=== PATIENT | female | born 1950 | race Caucasian/White ===

== ENCOUNTER 2016-09-18 11:21 | Outpatient (CLI) | payer MEDICARE, OTHER ==
[2016-09-18 17:56] LABS: BASOPHILS % (AUTO) 0.7 %; EOSINOPHILS % (AUTO) 0.5 %; HCT - HEMATOCRIT 40.5 % (37.0-47.0); HGB - HEMOGLOBIN 13.6 g/dL (12.0-16.0); LYMPHOCYTES # (AUTO) 1.7 10^3/uL (1.5-3.5); LYMPHOCYTES % (AUTO) 30.5 %; MEAN CORPUSCULAR HEMOGLOBIN 30.5 pg (27.0-31.0); MEAN CORPUSCULAR HGB CONC 33.5 g/dL (32.0-36.0); MEAN CORPUSCULAR VOLUME 91.1 fL (81.0-99.0); MEAN PLATELET VOLUME 6.6 fL (7.9-10.8); MONOCYTES # (AUTO) 0.4 10^3/uL (0.0-1.0); MONOCYTES % (AUTO) 7.4 %; NEUTROPHILS # (AUTO) 3.4 10^3/uL (1.5-6.6); NEUTROPHILS % (AUTO) 60.9 %; NUCLEATED RED BLOOD CELLS AUTO 0.1 /100WBC; RED BLOOD COUNT 4.44 10^6/uL (4.20-5.40); RED CELL DISTRIBUTION WIDTH 13.3 % (12.0-15.0); UNCORRECTED WHITE BLOOD COUNT 5.6 x10^3/uL; WHITE BLOOD COUNT 5.6 x10^3/uL (4.8-10.8)
[2016-09-18 18:47] LABS: ALBUMIN/GLOBULIN RATIO 1.7 (1.0-2.2); BILIRUBIN,TOTAL 0.7 mg/dL (0.2-1.0); BUN - BLOOD UREA NITROGEN 12 mg/dL (6-20); CALCIUM 9.9 mg/dL (8.5-10.3); CARBON DIOXIDE - CO2 26 mmol/L (21-32); CHLORIDE 97 mmol/L (101-111); CHOL/HDL RATIO 2.9 (<4.4); CHOLESTEROL 389 mg/dL; CREATININE 0.6 mg/dL (0.4-1.0); GFR - MDRD 99 (>89); GLUCOSE 101 mg/dL (70-100); HDL CHOLESTEROL 134 mg/dL; LDL/HDL RATIO 1.8 (<4.4); POTASSIUM 3.8 mmol/L (3.5-5.0); SODIUM 132 mmol/L (135-145); TOTAL PROTEIN 7.1 g/dL (6.7-8.2); TRIGLYCERIDES 51 mg/dL; VLDL CHOLESTEROL 10 mg/dL
== END 2016-09-18 11:22 | disposition home or self-care (01) ==
LOC: LAB.F 11:21
PROVIDERS: ATTEND Internal Medicine
DX: F34.1 Dysthymic disorder (principal); M60.9 Myositis, unspecified; E78.5 Hyperlipidemia, unspecified; E78.00 Pure hypercholesterolemia, unspecified
CPT/HCPCS: 36415; 80053; 80061; 82550; 84443; 85025; 85651; 86140

== ENCOUNTER 2018-05-23 11:14 | Outpatient (CLI) | payer MEDICARE, OTHER ==
[2018-05-23 18:17] LABS: BASOPHILS % (AUTO) 0.4 %; EOSINOPHILS # (AUTO) 0.1 10^3/uL (0.0-0.7); EOSINOPHILS % (AUTO) 2.4 %; HGB - HEMOGLOBIN 13.1 g/dL (12.0-16.0); LYMPHOCYTES # (AUTO) 1.5 10^3/uL (1.5-3.5); LYMPHOCYTES % (AUTO) 29.5 %; MEAN CORPUSCULAR HEMOGLOBIN 30.6 pg (27.0-31.0); MEAN CORPUSCULAR HGB CONC 33.7 g/dL (32.0-36.0); MEAN CORPUSCULAR VOLUME 90.8 fL (81.0-99.0); MEAN PLATELET VOLUME 6.5 fL (7.9-10.8); MONOCYTES # (AUTO) 0.4 10^3/uL (0.0-1.0); MONOCYTES % (AUTO) 8.3 %; NEUTROPHILS # (AUTO) 3.1 10^3/uL (1.5-6.6); NEUTROPHILS % (AUTO) 59.4 %; PLT - PLATELET COUNT 366 10^3/uL (130-450); RED BLOOD COUNT 4.26 10^6/uL (4.20-5.40); RED CELL DISTRIBUTION WIDTH 14.1 % (12.0-15.0); WHITE BLOOD COUNT 5.2 x10^3/uL (4.8-10.8)
[2018-05-23 18:28] LABS: ALBUMIN 4.2 g/dL (3.2-5.5); ALBUMIN/GLOBULIN RATIO 1.9 (1.0-2.2); ALKALINE PHOSPHATASE 49 IU/L (42-121); ALT ALANINE AMINOTRANSFERASE 21 IU/L (10-60); AST ASPARTATE AMINOTRANSFERASE 28 IU/L (10-42); BILIRUBIN,TOTAL 0.5 mg/dL (0.2-1.0); BUN - BLOOD UREA NITROGEN 11 mg/dL (6-20); CALCIUM 9.6 mg/dL (8.5-10.3); CARBON DIOXIDE - CO2 26 mmol/L (21-32); CHLORIDE 98 mmol/L (101-111); CREATININE 0.5 mg/dL (0.4-1.0); GFR - MDRD 122 (>89); GLUCOSE 114 mg/dL (70-100); SODIUM 132 mmol/L (135-145); TOTAL PROTEIN 6.4 g/dL (6.7-8.2)
[2018-05-23 19:18] LABS: CRP - C-REACTIVE PROTEIN < 1.0 mg/dL (0-1.0)
== END 2018-05-23 11:15 | disposition home or self-care (01) ==
LOC: LAB.F 11:14
PROVIDERS: ATTEND Internal Medicine
DX: R53.83 Other fatigue (principal); M79.10 Myalgia, unspecified site
CPT/HCPCS: 36415; 80053; 84443; 85025; 85651; 86140

== ENCOUNTER 2018-10-20 06:54 | Day surgery (SDC) | payer MEDICARE, OTHER ==
[2018-10-20] MEDS ORDERED: MIDAZOLAM 2 MG/2 ML VIAL IVP ONE (06:55)
[2018-10-20] MEDS ORDERED: fentaNYL 100 MCG/2 ML VIAL IVP ONE (06:55)
[2018-10-20] MEDS ORDERED: VANCOMYCIN OPHTHALMI 8MG/0.8ML 8 MG/0.8 ML SYRINGE IO ONE ×2 (07:08→09:09)
[2018-10-20] MEDS ORDERED: TRIAMCIN/MOXIFLOX OPHTHALMIC 0.6 ML VIAL IO ONE ×2 (07:08→09:08)
[2018-10-20] MEDS ORDERED: BRIMONIDINE 0.2% OPHTH DROPS 5 ML ONE (07:08)
[2018-10-20] MEDS ORDERED: TIMOLOL 0.5% OPHTH DROPS ONE (07:08)
[2018-10-20] MEDS ORDERED: BSS/LIDOCAINE/EPINEPHRINE 1 ML SYRINGE ONE (07:08)
[2018-10-20] MEDS ORDERED: LACTATED RINGERS 1,000 ML IV ONE (07:15)
[2018-10-20] MEDS ORDERED: PHENYLEPHRINE 2.5% OPHTH 2 ML DROPS ONE (07:17)
[2018-10-20] MEDS ORDERED: CYCLOPENTOLATE 1% OPHTH DROPS 2 ML ONE (07:17)
[2018-10-20] MEDS ORDERED: PROPARACAINE 0.5% OPHTH DROPS 15 ML ONE (07:17)
[2018-10-20] MEDS ORDERED: KETOROLAC 0.45% OPHTH DROPS ONE (07:17)
[2018-10-20] MEDS ORDERED: KETOROLAC 0.45% OPHTH DROPS LEFTEYE ONE (07:25)
[2018-10-20] MEDS ORDERED: CYCLOPENTOLATE 1% OPHTH DROPS 2 ML LEFTEYE ONE (07:25)
[2018-10-20] MEDS ORDERED: PHENYLEPHRINE 2.5% OPHTH 2 ML DROPS LEFTEYE ONE (07:25)
[2018-10-20] MEDS ORDERED: PROPARACAINE 0.5% OPHTH DROPS 15 ML LEFTEYE ONE (07:25)
--- NOTE | 2018-10-20 08:12 | ANESTHESIA ---
Pre-Anesthesia VS, & Labs - Diagnosis left senile combined cataract, left - Procedure left laser assisted extraction of cataract with lens implant Vital Signs: Temp Pulse Resp BP Pulse Ox 37.3 C 75 18 172/82 H 100 10/20/18 07:35 10/20/18 07:35 10/20/18 07:35 10/20/18 07:35 10/20/18 07:35 Height 5 ft 2 in Weight (kg) 49.9 kg - NPO >8 hours - Is Patient ?: No Home Medications and Allergies Home Medications: Ambulatory Orders Gabapentin 300 mg PO QID 10/19/18 Gabapentin 300 mg PO QID 10/19/18 Allergies/Adverse Reactions: Allergies Allergy/AdvReac Type Severity Reaction Status Date / Time amoxicillin Allergy Rash Verified 10/19/18 14:52 Anes History & Medical History - Anesthetic History Anesthesia Complications: reports: Post-Operative Nausea/Vomiting - Medical History Cardiovascular: reports: None Pulmonary: reports: None Gastrointestinal: reports: Other Urinary: reports: None Neuro: reports: None Musculoskeletal: reports: Osteoarthritis Endocrine/Autoimmune: reports: None Skin: reports: None - Surgical History Gynecologic: Mastectomy Exam General: Alert Dental: WNL Mouth Opening: Greater than 4 Fingerbreadths Mallampati classification: II Thyromental Distance: greater than 6 cm Respiratory: Lungs clear Cardiovascular: Regular rate Plan Anesthesia Type: MAC Consent for Procedure(s) Verified and Reviewed: Yes Code Status: Attempt Resuscitation ASA classification: 2-Mild systemic disease Is this case an emergency?: No
[2018-10-20] MEDS ORDERED: EPINEPHrine 1 MG/ML AMP IVP ONE (09:03)
[2018-10-20] MEDS ORDERED: BSS/LIDOCAINE/EPINEPHRINE 1 ML SYRINGE IO ONE (09:03)
[2018-10-20] MEDS ORDERED: CHONDR SULF/HYALURONATE SYRINGE IO ONE (09:03)
[2018-10-20] MEDS ORDERED: TIMOLOL 0.5% OPHTH DROPS OPTH ONE (09:03)
[2018-10-20] MEDS ORDERED: BRIMONIDINE 0.2% OPHTH DROPS 5 ML OPTH ONE (09:03)
--- NOTE | 2018-10-20 10:22 | OPERATIVE REPORT ---
DATE OF SERVICE: 10/20/2018 Physician: Kaushik Abel MD PREOPERATIVE DIAGNOSIS: Visually significant cataract, left eye. This was her first cataract surgery. POSTOPERATIVE DIAGNOSIS: Visually significant cataract, left eye. This was her first cataract surgery. DESCRIPTION OF PROCEDURE: Phacoemulsification with posterior chamber intraocular lens implant, left eye with laser assist using a toric lens. SURGEON: Kaushik Abel MD ANESTHESIA: Monitored anesthesia care. COMPLICATIONS: None. OPERATIVE INDICATIONS: This is a 68-year-old woman with progressive vision loss in the left eye due to 2+ nuclear sclerotic and 3+ cortical cataract. Best corrected visual acuity was 20/40, with glare to 20/80 in the left eye. Indications for surgery are overall decrease in vision, difficulty seeing words on a computer screen, difficulty reading and difficulty seeing street signs. She was consented at length concerning risks and benefits of cataract surgery, after which she expressed a desire to proceed with surgery. OPERATIVE PROCEDURE: The patient was taken into OR #3 and placed under monitored anesthesia care. Surgical timeout was conducted confirming correct patient, correct procedure, and correct surgical site. She was placed on the LenSx laser and her eye was docked to the laser interface. The laser performed the capsulotomy, lens softening and phaco wounds and arcuate keratotomy incisions. She was then moved to the operating microscope, given topical anesthesia and then prepped and draped in the usual sterile fashion. The eye was entered at the 6 and 9 o'clock positions. Intracameral Shugarcaine was injected into the anterior chamber, followed by Viscoat. Capsulorrhexis flap created by the LenSx laser was removed from the anterior chamber. The nucleus was hydrodissected and phacoemulsified. The cortex was evacuated using automated infusion and aspiration. Provisc was injected in the capsular bag, and an 18.5 diopter toric intraocular lens inserted in the bag and rotated into the proper position. Approximately 0.8 mL of a mixture of triamcinolone, moxifloxacin and vancomycin was injected subconjunctivally in the superior quadrant for infection and inflammation prophylaxis. I and A, was used to evacuate the viscoelastic materials. The eye was inflated to physiologic pressure using balanced salt solution and found to be watertight. The lens was verified again to be in the proper position of axis 167. The patient was taken from the operating room in good condition and given postoperative instructions. TD: 10/20/2018 10:09 COLLEEN
[2018-10-20 10:47] VITALS: BP 145/74
== END 2018-10-20 06:55 | disposition home or self-care (01) ==
LOC: SDS 06:54
PROVIDERS: ATTEND Ophthalmology
PROC: 08RK3JZ Replacement of Left Lens with Synthetic Substitute, Percutaneous Approach (ICD-10-PCS; principal; 2018-10-20 08:30)
DX: H25.812 Combined forms of age-related cataract, left eye (principal)
CPT/HCPCS: 66984; A9270; J3490; J7120; V2632

== ENCOUNTER 2018-12-22 08:21 | Day surgery (SDC) | payer MEDICARE, OTHER ==
[~2018-12-22 08:21] MED LIST: BRIMONIDINE 0.2% OPHTH DROPS 5 ML ONE; BSS/LIDOCAINE/EPINEPHRINE 1 ML SYRINGE ONE; CYCLOPENTOLATE 1% OPHTH DROPS 2 ML ONE; KETOROLAC 0.45% OPHTH DROPS ONE; PHENYLEPHRINE 2.5% OPHTH 2 ML DROPS ONE; PROPARACAINE 0.5% OPHTH DROPS 15 ML ONE; TIMOLOL 0.5% OPHTH DROPS ONE; TRIAMCIN/MOXIFLOX OPHTHALMIC 0.6 ML VIAL IO ONE; VANCOMYCIN OPHTHALMI 8MG/0.8ML 8 MG/0.8 ML SYRINGE IO ONE
[2018-12-22] MEDS ORDERED: LIDOCAINE 2% 10 ML MDV SUBQ ONE (08:22)
[2018-12-22] MEDS ORDERED: PROPOFOL 200 MG/20 ML VIAL IVP ONE (08:22)
[2018-12-22] MEDS ORDERED: MIDAZOLAM 2 MG/2 ML VIAL IVP ONE (08:22)
[2018-12-22] MEDS ORDERED: LACTATED RINGERS 500 ML IV ONE (08:48)
--- NOTE | 2018-12-22 09:40 | ANESTHESIA ---
Pre-Anesthesia VS, & Labs - Diagnosis Right senile combined cataract - Procedure Right laser assisted phaco with IOL implant Vital Signs: Temp Pulse Resp BP Pulse Ox 37.3 C 88 16 178/91 H 100 12/22/18 08:36 12/22/18 08:36 12/22/18 08:36 12/22/18 08:36 12/22/18 08:36 Height 5 ft 2 in Weight (kg) 48 kg - NPO >8 hours (Sip water with pills) - Is Patient ?: No - Lab Results Lab results reviewed: No Home Medications and Allergies Home Medications: Ambulatory Orders DULoxetine [Cymbalta] 30 mg PO DAILY 12/21/18 Gabapentin 300 mg PO QID 10/19/18 DULoxetine [Cymbalta] 30 mg PO DAILY 12/21/18 Allergies/Adverse Reactions: Allergies Allergy/AdvReac Type Severity Reaction Status Date / Time amoxicillin Allergy Rash Verified 12/21/18 14:38 Anes History & Medical History - Anesthetic History Anesthesia Complications: reports: Other-see comment (Had to receive Narcan after last cataract surgery) Family history of Anesthesia Complications: Denies Family history of Malignant Hyperthermia: Denies - Medical History Cardiovascular: reports: High cholesterol Pulmonary: reports: None Gastrointestinal: reports: None, Other Urinary: reports: None Neuro: reports: None Musculoskeletal: reports: Osteoarthritis Endocrine/Autoimmune: reports: None Blood Disorders: reports: None Skin: reports: None Smoking Status: Former smoker Psychosocial: reports: No issues indicated - Surgical History Eyes Ears Nose Throat (EENT): Cataracts Gynecologic: Mastectomy Exam General: Alert, Oriented x3, Cooperative Dental: WNL, TMJ Mouth Opening: Greater than 4 Fingerbreadths Neck Mobility: Normal Mallampati classification: II Thyromental Distance: greater than 6 cm Respiratory: Lungs clear Cardiovascular: Regular rate Mental/Cognitive Status: Alert/Oriented X3 Cognitive Status: Within normal limits Plan Anesthesia Type: MAC Consent for Procedure(s) Verified and Reviewed: Yes Code Status: Attempt Resuscitation ASA classification: 2-Mild systemic disease Is this case an emergency?: No
[2018-12-22] MEDS ORDERED: BRIMONIDINE 0.2% OPHTH DROPS 5 ML OPTH ONE (10:26)
[2018-12-22] MEDS ORDERED: CHONDR SULF/HYALURONATE SYRINGE IO ONE (10:26)
[2018-12-22] MEDS ORDERED: EPINEPHrine 1 MG/ML AMP IVP ONE (10:26)
[2018-12-22] MEDS ORDERED: TRIAMCIN/MOXIFLOX OPHTHALMIC 0.6 ML VIAL IO ONE (10:27)
[2018-12-22] MEDS ORDERED: VANCOMYCIN OPHTHALMI 8MG/0.8ML 8 MG/0.8 ML SYRINGE IO ONE (10:27)
[2018-12-22] MEDS ORDERED: TIMOLOL 0.5% OPHTH DROPS OPTH ONE (10:27)
[2018-12-22] MEDS ORDERED: BSS/LIDOCAINE/EPINEPHRINE 1 ML SYRINGE IO ONE (10:27)
[2018-12-22 10:45] VITALS: BP 143/78
--- NOTE | 2018-12-22 11:28 | OPERATIVE REPORT ---
DATE OF SERVICE: 12/22/2018 Physician: Kaushik Abel MD PREOPERATIVE DIAGNOSIS: Visually significant cataract, right eye. Cataract surgery was performed on the left eye on 10/20/2018. POSTOPERATIVE DIAGNOSIS: Visually significant cataract, right eye. Cataract surgery was performed on the left eye on 10/20/2018. PROCEDURE: Phacoemulsification with posterior chamber intraocular lens implant, right eye. SURGEON: Kaushik Abel MD ANESTHESIA: Monitored anesthesia care. COMPLICATIONS: None. OPERATIVE INDICATIONS: This is a 68-year-old woman with progressive vision loss in the right eye due to 2+ nuclear sclerotic and 2-3+ cortical cataract. Best corrected visual acuity was 20/25, with glare to 20/70 in the right eye. Indications for surgery are overall decrease in vision, difficulty seeing words on a computer screen, difficulty reading, difficulty seeing words, closed caption or game scores on TV and difficulty seeing street signs. She was consented at length concerning risks and benefits of cataract surgery, after which she expressed a desire to proceed with surgery. OPERATIVE PROCEDURE: Patient was taken to OR #3 and placed under monitored anesthesia care. Surgical timeout was conducted confirming correct patient, correct procedure, and correct surgical site. She was placed under the LenSx laser and her eye docked to the laser interface. The laser performed the capsulotomy, lens softening, phaco wounds, and arcuate keratotomy incisions. She was then moved to the operating microscope, given topical anesthesia, and prepped and draped in the usual sterile manner. The eye was entered at the 12 and 9 o'clock positions. Intracameral Shugarcaine was injected into the anterior chamber, followed by Viscoat. The capsulorhexis flap created by the LenSx laser was removed from the anterior chamber. The nucleus was hydrodissected and phacoemulsified. The cortex was evacuated using automated infusion and aspiration (I&A). Provisc was injected in the capsular bag and a 20.0 diopter toric intraocular lens inserted in the bag and rotated into axis 007. Approximately 0.25 mL of a mixture of triamcinolone, moxifloxacin was injected transsclerally into the vitreous in the inferotemporal quadrant. An additional 0.55 mL of a mixture of triamcinolone, moxifloxacin and vancomycin was injected subconjunctivally in the superior quadrant for infection and inflammation prophylaxis. I&A, was used to evacuate the viscoelastic materials. The IOL was verified to be in the correct orientation. The eye was inflated to physiologic pressure using balanced salt solution and found to be watertight. Patient was taken from the operating room in good condition and given postoperative instructions. TD: 12/22/2018 10:49 MTDBg
== END 2018-12-22 08:22 | disposition home or self-care (01) ==
LOC: SDS 08:21
PROVIDERS: ATTEND Ophthalmology
PROC: 08RJ3JZ Replacement of Right Lens with Synthetic Substitute, Percutaneous Approach (ICD-10-PCS; principal; 2018-12-22 10:00)
DX: H25.811 Combined forms of age-related cataract, right eye (principal); E78.00 Pure hypercholesterolemia, unspecified; G62.9 Polyneuropathy, unspecified; M19.90 Unspecified osteoarthritis, unspecified site; Z87.891 Personal history of nicotine dependence; Z98.42 Cataract extraction status, left eye
CPT/HCPCS: 66984; A9270; J3490; V2632; V2787

== ENCOUNTER 2019-12-15 08:28 | Outpatient (CLI) | payer MEDICARE, OTHER ==
[2019-12-15 15:34] LABS: BASOPHILS % (AUTO) 0.3 %; EOSINOPHILS # (AUTO) 0.2 10^3/uL (0.0-0.7); EOSINOPHILS % (AUTO) 2.6 %; HGB - HEMOGLOBIN 12.9 g/dL (12.0-16.0); LYMPHOCYTES # (AUTO) 2.2 10^3/uL (1.5-3.5); LYMPHOCYTES % (AUTO) 31.9 %; MEAN CORPUSCULAR HEMOGLOBIN 29.9 pg (27.0-31.0); MEAN CORPUSCULAR HGB CONC 31.9 g/dL (32.0-36.0); MEAN CORPUSCULAR VOLUME 93.7 fL (81.0-99.0); MEAN PLATELET VOLUME 8.4 fL (7.9-10.8); MONOCYTES # (AUTO) 0.5 10^3/uL (0.0-1.0); NEUTROPHILS # (AUTO) 4.1 10^3/uL (1.5-6.6); NEUTROPHILS % (AUTO) 58.1 %; PLT - PLATELET COUNT 419 10^3/uL (130-450); RED BLOOD COUNT 4.31 10^6/uL (4.20-5.40); RED CELL DISTRIBUTION WIDTH 13.4 % (12.0-15.0)
[2019-12-15 15:47] LABS: ALBUMIN 4.4 g/dL (3.2-5.5); ALBUMIN/GLOBULIN RATIO 1.6 (1.0-2.2); BILIRUBIN,TOTAL 0.7 mg/dL (0.2-1.0); CALCIUM 9.8 mg/dL (8.5-10.3); CREATININE 0.6 mg/dL (0.4-1.0); TOTAL PROTEIN 7.2 g/dL (6.7-8.2)
[2019-12-15 19:41] LABS: RHEUMATOID FACTOR NEGATIVE (Negative)
== END 2019-12-15 08:29 | disposition home or self-care (01) ==
LOC: LAB.S 08:28
PROVIDERS: ATTEND Internal Medicine
DX: G62.9 Polyneuropathy, unspecified (principal)
CPT/HCPCS: 36415; 80053; 82607; 82746; 85025; 85651; 86038; 86430

== ENCOUNTER 2020-08-07 08:35 | Outpatient (CLI) | payer MEDICARE, OTHER ==
[2020-08-07 14:40] LABS: BASOPHILS % (AUTO) 0.4 %; EOSINOPHILS # (AUTO) 0.9 10^3/uL (0.0-0.7); EOSINOPHILS % (AUTO) 8.1 %; HCT - HEMATOCRIT 33.3 % (37.0-47.0); HGB - HEMOGLOBIN 10.6 g/dL (12.0-16.0); LYMPHOCYTES # (AUTO) 3.6 10^3/uL (1.5-3.5); LYMPHOCYTES % (AUTO) 32.3 %; MEAN CORPUSCULAR HEMOGLOBIN 29.3 pg (27.0-31.0); MEAN CORPUSCULAR HGB CONC 31.8 g/dL (32.0-36.0); MEAN PLATELET VOLUME 8.4 fL (7.9-10.8); NEUTROPHILS # (AUTO) 5.5 10^3/uL (1.5-6.6); NEUTROPHILS % (AUTO) 49.8 %; PLT - PLATELET COUNT 433 10^3/uL (130-450); RED BLOOD COUNT 3.62 10^6/uL (4.20-5.40); RED CELL DISTRIBUTION WIDTH 14.2 % (12.0-15.0); WHITE BLOOD COUNT 11.1 x10^3/uL (4.8-10.8)
[2020-08-07 15:15] LABS: ALBUMIN/GLOBULIN RATIO 1.6 (1.0-2.2); ALKALINE PHOSPHATASE 69 IU/L (42-121); ALT ALANINE AMINOTRANSFERASE 36 IU/L (10-60); AST ASPARTATE AMINOTRANSFERASE 31 IU/L (10-42); BILIRUBIN,TOTAL 0.7 mg/dL (0.2-1.0); BUN - BLOOD UREA NITROGEN 15 mg/dL (6-20); CARBON DIOXIDE - CO2 25 mmol/L (21-32); CHLORIDE 99 mmol/L (101-111); CHOL/HDL RATIO 5.5 (<4.4); CHOLESTEROL 270 mg/dL; CREATININE 0.7 mg/dL (0.4-1.0); GFR - MDRD 82 (>89); GLUCOSE 98 mg/dL (70-100); HDL CHOLESTEROL 49 mg/dL; LDL CHOLESTEROL,CALCULATED 205 mg/dL; LDL/HDL RATIO 4.2 (<4.4); POTASSIUM 3.2 mmol/L (3.5-5.0); SODIUM 134 mmol/L (135-145); TOTAL PROTEIN 6.5 g/dL (6.7-8.2); TRIGLYCERIDES 81 mg/dL; VLDL CHOLESTEROL 16 mg/dL
== END 2020-08-07 08:36 | disposition home or self-care (01) ==
LOC: LAB.S 08:35
PROVIDERS: ATTEND Internal Medicine
DX: E78.00 Pure hypercholesterolemia, unspecified (principal); R03.0 Elevated blood-pressure reading, without diagnosis of hypertension; I50.9 Heart failure, unspecified; G62.9 Polyneuropathy, unspecified; R22.42 Localized swelling, mass and lump, left lower limb
CPT/HCPCS: 36415; 80053; 80061; 83721; 83880; 85025; 85379

== ENCOUNTER 2020-08-14 12:26 | Outpatient (CLI) | payer MEDICARE, OTHER ==
[2020-08-21 17:22] LABS: COPPER 245 mcg/dL (70-175)
[2020-08-23 20:37] LABS: ENDOMYSIAL ANTIBODY SCR IGA NEGATIVE (NEGATIVE); GLIADIN (DEAMIDATED) AB IGA 2 U (<20); GLIADIN (DEAMIDATED) AB IGG 1 U (<20); IMMUNOGLOBULIN A 65 mg/dL (70-320); TISSUE TRANSGLUTAMINASE IGA <1 U/mL; TISSUE TRANSGLUTAMINASE IGG <1 U/mL
== END 2020-08-14 12:27 | disposition home or self-care (01) ==
LOC: LAB.S 12:26
PROVIDERS: ATTEND Psychiatry & Neurology Neurology
DX: M79.604 Pain in right leg (principal); M79.605 Pain in left leg; M79.671 Pain in right foot; M79.672 Pain in left foot; R29.2 Abnormal reflex; R20.0 Anesthesia of skin
CPT/HCPCS: 36415; 81599; 82525; 82728; 82784; 83516; 83735; 84155; 84165; 84630; 86255; 86334; 86780

== ENCOUNTER 2020-08-15 07:44 | Outpatient (CLI) | payer MEDICARE, OTHER | END 2020-08-15 07:45 | disposition home or self-care (01) | LOC: LAB.S 07:44 | PROVIDERS: ATTEND Psychiatry & Neurology Neurology | DX: R20.0 Anesthesia of skin (principal) | CPT/HCPCS: 84207 ==

== ENCOUNTER 2020-08-19 13:37 | Outpatient (CLI) | payer MEDICARE, OTHER ==
--- NOTE | 2020-08-19 17:49 | Ultrasound Report ---
PROCEDURE: Ankle Brachial Index INDICATIONS: HYPERREFLEXIA, NUMBNESS IN FEET, NECK PAIN TECHNIQUE: Ankle-brachial indices were obtained bilaterally and recorded. COMPARISONS: None. FINDINGS: Right ankle brachial index (RANDALL): 0.89 Left ankle brachial index (RANDALL): 1.0 Healing potential: Ankle pressures >55 mm Hg in non-diabetics and >80 mm Hg in diabetics are likely to achieve primary h ealing of ischemic foot ulcers. Toe pressures >30 mm Hg are likely to achieve primary healing of ischemic foot ulcers, toe or transme tatarsal amputations. IMPRESSION: A slightly decreased right ankle brachial index suggests probable peripheral vascular disease. Consid er ABIs with and without exercise versus peripheral arterial ultrasound if the patient has clinically significant claudication type symptoms. Reviewed by: Marcelino Wisdom MD on 08/19/2020 5:47 PM PDT Approved by: Marcelino Wisdom MD on 08/19/2020 5:47 PM PDT Station ID: [id number]
--- NOTE | 2020-08-19 18:41 | MRI Report ---
PROCEDURE: Cervical Spine W/O INDICATIONS: HYPERREFLEXIA, NUMBNESS IN FEET, NECK PAIN TECHNIQUE: Noncontrast sagittal T1 spin echo and T2 fast spin echo, sagittal STIR, foraminal oblique sagittal T2 fast spin echo, and axial gradient echo or T2 fast spin echo through the cervical spine. COMPARISON: None. FINDINGS: Image quality: Excellent. Alignment and Curvature: There is normal bony alignment. Bone Marrow: Marrow demonstrates normal overall signal. Spinal Cord: Visualized spinal cord has normal size and signal. No cerebellar tonsillar herniation. Paraspinous Soft Tissues: No paravertebral masses. Prevertebral soft tissues are normal in thicknes s. C2-C3: Normal in appearance. C3-C4: Disc height is preserved. Mild ligamentum flavum buckling and disc bulge results in mild jammie tral but no foraminal stenosis. C4-C5: Mild disc height loss and posterior disc bulge touches the ventral surface of the cord withou t cord indentation. There is moderate central stenosis with mild left foraminal stenosis. C5-C6: Moderate disc height loss and posterior disc osteophyte complex effaces the lateral recesses. Mild central stenosis present. Hypertrophic uncovertebral joints results in moderate left foraminal stenosis. No right foraminal stenosis. C6-C7: Posterior disc bulge and hypertrophic facet joints are present. No central or foraminal steno sis. C7-T1: Normal in appearance. IMPRESSION: 1. Multilevel degenerative disc disease and arthropathy results in varying degrees of central and for aminal stenosis including moderate central stenosis at C4-5 Reviewed by: Jabari Dye MD on 08/19/2020 5:40 PM [facility] Approved by: Jabari Dye MD on 08/19/2020 5:40 PM [facility] Station ID: [id number]
== END 2020-08-19 13:38 | disposition home or self-care (01) ==
LOC: DI 13:37
PROVIDERS: ATTEND Psychiatry & Neurology Neurology
DX: M50.31 Other cervical disc degeneration, high cervical region (principal); M48.02 Spinal stenosis, cervical region; M47.812 Spondylosis without myelopathy or radiculopathy, cervical region
CPT/HCPCS: 93922

== ENCOUNTER 2020-09-04 10:13 | Outpatient (CLI) | payer MEDICARE, OTHER | END 2020-09-04 10:14 | disposition home or self-care (01) | LOC: DI 10:13 | PROVIDERS: ATTEND Internal Medicine | DX: R00.0 Tachycardia, unspecified (principal); I51.7 Cardiomegaly; I34.0 Nonrheumatic mitral (valve) insufficiency; I31.3 Pericardial effusion (noninflammatory); R93.1 Abnormal findings on diagnostic imaging of heart and coronary circulation; I77.810 Thoracic aortic ectasia; I87.8 Other specified disorders of veins | CPT/HCPCS: 93306 ==

== ENCOUNTER 2020-10-31 14:31 | Outpatient (CLI) | payer MEDICARE, OTHER | END 2020-10-31 14:32 | disposition home or self-care (01) | LOC: RT 14:31 | PROVIDERS: ATTEND Internal Medicine Cardiovascular Disease | DX: I50.9 Heart failure, unspecified (principal) | CPT/HCPCS: 93005 ==

== ENCOUNTER 2020-11-27 08:39 | Outpatient (CLI) | payer MEDICARE, OTHER ==
[2020-11-27 15:04] LABS: BASOPHILS # (AUTO) 0.1 10^3/uL (0.0-0.1); BASOPHILS % (AUTO) 0.6 %; EOSINOPHILS # (AUTO) 0.2 10^3/uL (0.0-0.7); EOSINOPHILS % (AUTO) 1.9 %; HCT - HEMATOCRIT 39.7 % (37.0-47.0); HGB - HEMOGLOBIN 12.5 g/dL (12.0-16.0); LYMPHOCYTES % (AUTO) 33.9 %; MEAN CORPUSCULAR HEMOGLOBIN 28.5 pg (27.0-31.0); MEAN CORPUSCULAR HGB CONC 31.5 g/dL (32.0-36.0); MEAN CORPUSCULAR VOLUME 90.6 fL (81.0-99.0); MONOCYTES # (AUTO) 0.8 10^3/uL (0.0-1.0); MONOCYTES % (AUTO) 9.2 %; NEUTROPHILS # (AUTO) 4.8 10^3/uL (1.5-6.6); NEUTROPHILS % (AUTO) 54.2 %; PLT - PLATELET COUNT 605 10^3/uL (130-450); RED BLOOD COUNT 4.38 10^6/uL (4.20-5.40); RED CELL DISTRIBUTION WIDTH 18.4 % (12.0-15.0); WHITE BLOOD COUNT 8.9 x10^3/uL (4.8-10.8)
[2020-11-27 15:29] LABS: ALBUMIN 3.6 g/dL (3.2-5.5); ALBUMIN/GLOBULIN RATIO 1.3 (1.0-2.2); BILIRUBIN,TOTAL 0.9 mg/dL (0.2-1.0); CALCIUM 9.4 mg/dL (8.5-10.3); POTASSIUM 3.5 mmol/L (3.5-5.0); TOTAL PROTEIN 6.4 g/dL (6.7-8.2)
== END 2020-11-27 08:40 | disposition home or self-care (01) ==
LOC: LAB.S 08:39
PROVIDERS: ATTEND Internal Medicine
DX: I50.9 Heart failure, unspecified (principal); Z79.899 Other long term (current) drug therapy
CPT/HCPCS: 36415; 80053; 83880; 85025

== ENCOUNTER 2020-12-03 09:50 | Outpatient (CLI) | payer MEDICARE, OTHER ==
[2020-12-03 14:39] LABS: ALBUMIN 3.6 g/dL (3.2-5.5); ALBUMIN/GLOBULIN RATIO 1.3 (1.0-2.2); BILIRUBIN,TOTAL 0.7 mg/dL (0.2-1.0); CALCIUM 9.8 mg/dL (8.5-10.3); POTASSIUM 3.6 mmol/L (3.5-5.0); TOTAL PROTEIN 6.4 g/dL (6.7-8.2)
== END 2020-12-03 09:51 | disposition home or self-care (01) ==
LOC: LAB.S 09:50
PROVIDERS: ATTEND Internal Medicine
DX: I50.9 Heart failure, unspecified (principal)
CPT/HCPCS: 36415; 80053

== ENCOUNTER 2020-12-05 12:14 | Outpatient (CLI) | payer MEDICARE, OTHER ==
[2020-12-10 12:30] LABS: KAPPA/LAMBDA LC FREE RATIO 0.02 (0.26-1.65)
[2020-12-10 13:36] LABS: ALBUMIN 3.2 g/dL (3.8-4.8); ALPHA 2 GLOBULIN 0.9 g/dL (0.5-0.9); BETA 1 GLOBULIN 0.5 g/dL (0.4-0.6); BETA 2 GLOBULIN 0.3 g/dL (0.2-0.5); GAMMA GLOBULIN 0.5 g/dL (0.8-1.7)
== END 2020-12-05 12:15 | disposition home or self-care (01) ==
LOC: LAB.S 12:14
PROVIDERS: ATTEND Internal Medicine
DX: D64.9 Anemia, unspecified (principal)
CPT/HCPCS: 36415; 81599; 83883; 84155; 84165; 86334; 86335

== ENCOUNTER 2020-12-20 11:16 | Outpatient (CLI) | payer MEDICARE, OTHER ==
[2020-12-20 15:43] LABS: ALBUMIN 4.1 g/dL (3.2-5.5); ALBUMIN/GLOBULIN RATIO 1.4 (1.0-2.2); BILIRUBIN,TOTAL 0.7 mg/dL (0.2-1.0); CREATININE 1.2 mg/dL (0.4-1.0); POTASSIUM 4.1 mmol/L (3.5-5.0)
== END 2020-12-20 11:17 | disposition home or self-care (01) ==
LOC: LAB.S 11:16
PROVIDERS: ATTEND Internal Medicine
DX: I42.8 Other cardiomyopathies (principal); Z79.899 Other long term (current) drug therapy
CPT/HCPCS: 36415; 80053

== ENCOUNTER 2020-12-27 15:08 | Emergency (ER) | payer MEDICARE, OTHER ==
--- NOTE | 2020-12-27 16:56 | ED Physician Documentation ---
PD HPI Fall - Stated complaint Stated Complaint: GLF - Chief complaint Chief Complaint: Trauma Ch/Bk - History obtained from History obtained from: Patient - History of Present Illness Mechanism of injury: Tripped Fall distance: Standing position Where injury occurred: Street Timing - onset: Today Injury(ies) location: Chest, Back Quality of pain: Pain Associated symptoms: No: LOC, AMS, Amnesia, Seizures, Ear drainage, Nasal drainage, Neck pain, Weakness, Paresthesias, Dyspnea, Nausea / vomiting, Hematemesis, Abdominal distension Symptoms improve with: Rest Contributing factors: No: Anticoagulated Similar symptoms before: Has not had sx before Recently seen: Clinic - Additional information Additional information: 70-year-old female was going in to see the oncologist today about a diagnosis of multiple myeloma. She indicates that she tripped and fell backwards against a tree this afternoon. She reports pain to her back and chest wall. She states that she feels that she will be okay. She is not having difficulty breathing she does have some pain when she takes a deep breath in the left chest wall posteriorly. She is not on a blood thinner she did not strike her head she denies any neck pain. Review of Systems Constitutional: denies: Fever Respiratory: denies: Cough GI: denies: Vomiting Skin: denies: Rash Musculoskeletal: reports: Back pain. 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 HEENT: Cataracts - Present Medications Home Medications: Ambulatory Orders Medication Instructions Recorded Confirmed Gabapentin 300 mg PO 5XD 10/19/18 12/27/20 DULoxetine [Cymbalta] 30 mg PO DAILY 12/21/18 12/27/20 Amitriptyline [Elavil] 1 tab PO DAILY 12/27/20 12/27/20 FLUoxetine [PROzac] 1 tab PO DAILY 12/27/20 12/27/20 Furosemide [Lasix] 80 mg PO DAILY 12/27/20 12/27/20 Potassium Chloride [Micro-K] 20 mg PO DAILY 11/19/21 11/19/21 [id number] CD [Cardizem Cd] 1 tab PO DAILY 12/27/20 12/27/20 - Allergies Allergies/Adverse Reactions: Allergies Allergy/AdvReac Type Severity Reaction Status Date / Time amoxicillin Allergy Rash Verified 12/27/20 15:22 - Social History Smoking Status: Former smoker PD ED PE NORMAL - Vitals Vital signs reviewed: Yes (normal ) - General General: Alert and oriented X 3, No acute distress, Well developed/nourished, Other (pale appearing thin elderly female ) - HEENT HEENT: Atraumatic, PERRL - Neck Neck: Supple, no meningeal sign, No bony TTP - Cardiac Cardiac: RRR, No murmur - Respiratory Respiratory: No respiratory distress, Clear bilaterally, Other (mild chest wall tenderness posteriorly on the left side. 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, No motor deficit, No sensory def icit, Normal speech Eye Opening: Spontaneous Motor: Obeys Commands Verbal: Oriented GCS Score: 15 - Psych Psych: Normal mood, Normal affect Results - Vitals Vitals: Vital Signs - 24 hr 12/27/20 12/27/20 15:17 17:20 Temperature 36.8 C Heart Rate 90 86 Respiratory 16 18 Rate Blood Pressure 110/65 130/79 O2 Saturation 94 98 Oxygen O2 Source Room air - Rads (name of study) chest Radiology: Prelim report reviewed (Impression: No evidence of fracture or pneumothorax cardiomegaly without vascular congestion surgical clips and aortic atherosclerosis.), EMP read indepedently, See rad report PD MEDICAL DECISION MAKING - ED course Complexity details: reviewed results, re-evaluated patient, considered differential, d/w patient ED course: Frail 70-year-old female with a fall against a tree has a contusion to her chest wall. She does not appear to have any difficulty breathing. A chest x-ray is reassuring for no evidence of injury to the area. She feels that she will do well. Departure - Departure Disposition: 01 Home, Self Care Clinical Impression: Contusion of chest wall Qualifiers: Encounter type: initial encounter Laterality: left Qualified Code(s): S20.212A - Contusion of left front wall of thorax, initial encounter Condition: Stable Instructions: ED Contusion Chest Wall, ED Contusion Vs Minor Fx Rib Follow-Up: Hoem Hughes MD [Primary Care Provider] - Discharge Date/Time: 12/27/20 17:44
[2020-12-27 17:21] VITALS: BP 130/79
--- NOTE | 2020-12-27 17:27 | XRAY Report ---
PROCEDURE: Chest 2 View X-Ray INDICATIONS: left posterior chest wall contusion TECHNIQUE: 2 view(s) of the chest. COMPARISON: None. FINDINGS: Surgical changes and devices: Multiple surgical clips noted in the right chest and left axilla.. Lungs and pleura: No pleural effusions or pneumothorax. Lungs are clear. Mediastinum: Mediastinal contours are normal. Heart size is enlarged. No vascular congestion. Athe rosclerotic vascular calcification noted in the aortic arch. Bones and chest wall: No suspicious bony abnormalities. Soft tissues appear unremarkable. IMPRESSION: No evidence of fracture or pneumothorax Cardiomegaly without vascular congestion Surgical clips and aortic atherosclerosis Reviewed by: Jabari Dye MD on 12/27/2020 4:25 PM [place] Approved by: Jabari Dye MD on 12/27/2020 4:25 PM [facility] Station ID: [id number]
== END 2020-12-27 17:44 | disposition home or self-care (01) ==
LOC: ED 15:08
DX: S20.212A Contusion of left front wall of thorax, initial encounter (principal); W01.198A Fall on same level from slipping, tripping and stumbling with subsequent striking against other object, initial encounter; Y93.01 Activity, walking, marching and hiking; Y92.481 Parking lot as the place of occurrence of the external cause; Z87.891 Personal history of nicotine dependence
CPT/HCPCS: 99282; 99283

== ENCOUNTER 2020-12-28 10:25 | Outpatient (CLI) | payer MEDICARE, OTHER ==
[2020-12-28 15:22] LABS: CALCIUM 9.8 mg/dL (8.5-10.3); CREATININE 1.4 mg/dL (0.4-1.0)
== END 2020-12-28 10:26 | disposition home or self-care (01) ==
LOC: LAB.S 10:25
PROVIDERS: ATTEND Internal Medicine Cardiovascular Disease
DX: I50.9 Heart failure, unspecified (principal)
CPT/HCPCS: 36415; 80048

== ENCOUNTER 2021-02-13 12:00 | Outpatient (CLI) | payer MEDICARE, OTHER ==
--- NOTE | 2021-02-13 17:31 | CONSULTATION NOTE ---
Palliative Care Consultation - Referral Referring Provider: Dr. Home Hughes Time of Visit: Referral setting: Home Referral Reason: AL Amyloidosis/Goals of Care/Wt. Loss/CHF - Information Sources Records reviewed: Previous records reviewed History/Review of Systems obtained from: Patient, Family ( [place]) Exam limitations: Clinical condition (anxiety/overwhelmed with medical system) - History of Present Illness Brief History of Present Illness: This is a quiet reserved 70-year-old woman, who has had a significant decline in her health over the last several months. She originally developed some left ankle and leg pain, that was characteristic of sharp shooting pains, was started on gabapentin this was a couple of years ago and involved work up with neurology. She reports has now some bilateral sensations, but currently controlled but also has resulted in poor balance and numbness. She then developed some increasing lower extremity edema, which was originally resistant to furosemide, and was put on Bumex. She reports she had pitting edema up to her mid calf areas and increased shortness of breath. This is improved and on exam has trace pedal edema in her ankles only. She has not though, has her diuretics adjusted, was on Bumex 2 mg BID, recently ran out a few days ago. She has developed increased difficulty with swallowing, early satiety, and weight loss. She is currently 94 pounds down from baseline of 110 and was 104 a few weeks ago, and was worked up by cardiology. She was found on echogram in 08/28 to have moderate to severe LVH, severe diastolic dysfunction, global hypokinesis, ejection fraction of 45% and moderate to severe mitral regurgitation, moderate to severe tricuspid regurgitation and moderate pulmonary hypertension. There was concern the patient with her lambda light chain elevated, to rule out amyloidosis and myeloma. In follow-up with Dr. Turner in 10/29, reports hematology was to rule out myeloma versus amyloidosis, and if indicated then proceed with PYP scan to elevate for ATTR amyloid. Patient did see oncology, for diagnosis of abnormally elevated light chain concerning for myeloma/amyloidosis, CKD stage IIIb, and thrombocytosis. Unfortunately she felt quite overwhelmed, and distressed with this appointment, was given multiple appointments for testing in the setting of patient's already escalating anxiety and distress with interactions with medical system. In the context of testing that may involve travel in over to the other side, after her cardiac workout, she just decided to cancel all appointments. This was on 01/24. And has not really had any interaction other than a referral to palliative care since this time. She has continued to lose weight, increasing weakness, increased trouble with swallowing. She has developed tremors in her hands, worsening balance issues, and worsening fatigue. She is quite anxious, and both her and her are worried about her declining functional status as well as concern for transitioning to an end-of-life event. 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 Support System: Patient has been on [facility] since 1999 since they retired. She and her have been 48 years. She has done a variety of small jobs since she came here. Her sister and [id number] live on the [place]. Family History - Family History Family History: Mother: , Alzheimer's Disease ( of alz at 92), Father: , CAD (father of heart failure at 84), Sister: Alive and Well (two brother and one sister), Brother: Alive and Well Medications/Allergies - Medications Home Medications: Ambulatory Orders Medication Instructions Recorded Confirmed Gabapentin 300 mg PO 5XD 10/19/18 02/18/21 Amitriptyline [Elavil] 25 tab PO DAILY 12/27/20 02/18/21 FLUoxetine [PROzac] 10 tab PO DAILY 12/27/20 02/18/21 Potassium Chloride [Micro-K] 20 mg PO DAILY 12/27/20 01/24/21 Cholecalciferol [Vitamin D3] 1,000 intlu PO DAILY 01/24/21 02/18/21 Magnesium Oxide [Magnesium] 400 mg PO DAILY 01/24/21 02/18/21 Bumetanide 2 mg PO DAILY 02/18/21 02/18/21 Latanoprost 0.005% Ophth Drops 1 drops EACHEYE DAILY 02/18/21 02/18/21 [Xalatan Ophth Drops] diltiaZEM CD [Cardizem Cd] 120 mg PO DAILY 02/18/21 02/18/21 - Allergies Allergies/Adverse Reactions: Allergies Allergy/AdvReac Type Severity Reaction Status Date / Time amoxicillin Allergy Rash Verified 12/27/20 15:22 Review of Systems - Constitutional Constitutional: reports: Fatigue (worsening), Weakness, Poor appetite, Weight loss (94 pounds). denies: Fever - Eyes Eyes: reports: Vision loss - Ears, Nose & Throat Ears, Nose & Throat: reports: Dry mouth, Other (voice weak) - Cardiovascular Cardiovascular: reports: Lightheadedness, Exertional dyspnea, Decr. exercise tolerance. denies: Chest pain, Edema (currently controlled) - Respiratory Respiratory: reports: SOB with exertion. denies: Cough, Wheezing, Orthopnea, SOB at rest - Gastrointestinal Gastrointestinal: reports: Poor appetite, Early satiety. denies: Constipation, Nausea, Reflux/heartburn - Musculoskeletal Musculoskeletal: reports: Muscle pain, Muscle aches, Stiffness, Muscle weakness, Joint pain (knees and ankles). denies: Assistive devices (recommended a walker) - Integumentary Integumentary: reports: Dryness - Neurological Neurological: reports: General weakness, Numbness, Memory problems, Other (new tremors) - Psychiatric Psychiatric: reports: Depression, Anxiety - Endocrine Endocrine: reports: Intolerance to cold - Hematologic/Lymphatic Hematologic/Lymph: denies: Recurrent infections - All Other Systems All Other Systems: reports: Reviewed and negative Physical Exam - Vital Signs Temperature: 97.7 C Pulse Rate: 103 Respiratory Rate: 18 O2 Saturation: 98 Blood Pressure: 108/72 - Physical Exam General Appearance: positive: Alert, Anxious, Cachetic Eyes Bilateral: positive: No scleral icterus Neck: positive: Trachea midline Cardiovascular: positive: Regular rate & rhythm, Tachycardia Respiratory: positive: No respiratory distress, Breath sounds nml Abdomen: negative: Tenderness Skin: positive: Pallor, Dryness Extremities: positive: No pedal edema, Other (gait slow measured) Neurologic/Psychiatric: positive: Oriented x3, Weakness, Flat affect, Other (hand tremors; slight) Palliative Care - POLST Patient has POLST: No Pain: Pain unchanged, Location (left leg and thigh; currently controlled on gabapentin), Severity (3/10) Tiredness/Fatigue: Severe (7-10) Drowsiness/Sedation: Severe (7-10) Nausea: None Anorexia: Severe (7-10) Dyspnea: None Depression: Mild (1-3) Anxiety: Mild (1-3) Feelings of wellbeing/Perceived Quality of Life: Good, Acceptable, Worsening Sleep: Sleeps well Constipation: No Performance Status: Patient has had a decline in functional status, She is more sedentary, she is having difficulty with stairs. Needing to "pull her self up". She is no longer able to take baths, and showering is quite fatiguing. - Palliative Care Discussion: Has had multiple appointments and testing over the last few months, is feeling quite overwhelmed. She does understand there is most likely something serious going on, but was distressed and overwhelmed after her oncology appointment and did not want to go back. It is difficult to tease out whether it is anxiety or health literacy, but disliked her interaction with oncology. Unfortunately she then canceled all her appointments, and has had no further work up or instruction regarding her current health status. Her is understandably distressed, she continues to lose weight, is getting weaker. Patient does understand that she is getting towards an end-of-life event, though is not adamant in her decision to focus on comfort. We discussed two journeys as a decision point at this point, could follow-up regarding collecting information particularly regarding underlying etiology of what is going on, with some help in navigating system. She did not actually get far enough to even get a diagnosis nor what options may or may not be available, or we could transition focus to comfort, and refer her onto hospice with a focus on supporting her at home. After teasing out her anxiety regarding her current situation, decision is made to move forward, did offer her alternative oncologist to see if it is a better fit. This was acceptable to her, we also discussed could look at weighing the benefits and burdens of the multiple tests presented, to see what was going to give her information to be able to make a more informed decision. She is quite frail, and most likely would not tolerate any aggressive treatment regimen, that may be of benefit to explore underlying etiology why benefits and burdens of treatments at that time Results - Lab Results Lab results reviewed: Yes Impression and Recommendations - Palliative Care Impression: This is a 70-year-old woman who has had a significant change in health status, with recent development of CHF with unknown etiology in last few months, persistent weight loss, developed increase difficulty with swallowing, declining functional status, and abnormally elevated light chains concerning for myeloma/amyloidosis. Patient unfortunately related to her anxiety, did not follow up after her oncology consult for further care. Palliative care is meeting with patient and for first time to establish rapport, established goals of care, and help coordinate care. Recommendations/Counseling Done: 1. AL amyloidosis. Patient did not complete work-up, unfortunately there were many barriers regarding this, after much discussion in the context of goals of care, patient would like to pursue diagnosis, but weighing the tests and interventions in context of quality of life and impact on decision. We did discuss the need for an underlying etiology to better understand if she did have treatment options, which would include managing a chronic disease versus under standing the prognosis of something more serious. Barriers included relationship with the oncologist, feeling of overwhelmed particularly if needed further testing and [place], and understanding her current situation. Did reach out to oncology clinic, patient has been reassigned to Dr. Pulliam. We will facilitate getting further labs for visit prior to visit to be able to expedite diagnosis and information seeking. Will coordinate care with oncologist regarding patient's concerns. 2. CHF. Patient has been on Bumex 2 mg twice daily, does appear slightly dehydrated. Only trace edema in her ankles, complaints of weakness and dizziness. Blood pressure 108/72 with some lightheadedness. She has been off her diuretics for several days this was unable to obtain new prescription. Did call [facility] it is available, did reach out to Dr. Turner. Patient does not need to return to cardiology until oncology work-up is completed. Only reason for follow-up would be to adjust diuretics, most likely can have these decreased particularly with weight loss and ongoing issues. Patient this point time would not be a candidate for beta-blockers. We will continue to follow and refer her onto audiology when appropriate. E. Generalized weakness. Patient with multifactorial issues, instructed to get a walker, given [facility] [place]. Hopefully with medication adjustments will feel better, patient also most likely dehydrated. 4. Weight loss. This is multifactorial, patient with increased difficulty with swallowing, unclear if this is weakness, or something more serious related to her diagnosis. She is following a soft diet, discussed Chin down for choking, and instructed to increase her Ensure to twice a day. They are using soups, passes, encouraged more small frequent feedings. Will at some point transition back to oncology clinic will make a dietary/dietitian referral. 5. Anxiety. This is multifactorial, both her and her are distressed that her ongoing decline. We will continue to tease out what else is adding to her anxiety and needs for navigating healthcare system. 6. Advance care planning. Patient this point in time is not ready to transition to hospice, though counseling was provided regarding the continuum of care, introduction of palliative care vs hospice care, and patient's goals at this time are still ambivalent. We will go ahead and facilitate further follow- up and obtain labs, adjust medications, and coordinate with specialist to provide better information for patient to make informed choices. 75 minutes with greater than 50% of this time in counseling, keeping up goals of care, ordination of care with oncology and cardiology, follow-up with oncology clinic for labs and referral
== END 2021-02-13 12:01 | disposition home or self-care (01) ==
LOC: PC 12:00
PROVIDERS: ATTEND Nurse Practitioner Adult Health
DX: Z51.5 Encounter for palliative care (principal); E85.81 Light chain (AL) amyloidosis; I50.9 Heart failure, unspecified; N18.32 Chronic kidney disease, stage 3b; D75.839 Thrombocytosis, unspecified; F41.9 Anxiety disorder, unspecified; R60.0 Localized edema; I27.20 Pulmonary hypertension, unspecified; R63.4 Abnormal weight loss; R53.1 Weakness
CPT/HCPCS: 99345

== ENCOUNTER 2021-02-18 11:55 | Outpatient (CLI) | payer MEDICARE, OTHER ==
[2021-02-18 15:23] LABS: ALBUMIN 3.2 g/dL (3.2-5.5); BILIRUBIN,TOTAL 1.1 mg/dL (0.2-1.0); CREATININE 1.7 mg/dL (0.4-1.0); TOTAL PROTEIN 6.3 g/dL (6.7-8.2)
[2021-02-18 15:34] LABS: CALCIUM 10.7 mg/dL (8.5-10.3); POTASSIUM 3.9 mmol/L (3.5-5.0)
== END 2021-02-18 11:56 | disposition home or self-care (01) ==
LOC: LAB.S 11:55
PROVIDERS: ATTEND Nurse Practitioner Adult Health
DX: Z79.899 Other long term (current) drug therapy (principal)
CPT/HCPCS: 36415; 80053

== ENCOUNTER 2021-02-19 13:30 | Outpatient (CLI) | payer MEDICARE, OTHER ==
--- NOTE | 2021-02-20 18:03 | CONSULTATION NOTE ---
Palliative Care Follow Up - Referral Referring Provider: Dr. Hughes Time of Visit: SUNDAY 02/19 1330 30 minutes [place] [facility] [place] Reason: Hypercalcemia/CKD III/CHF/Goals of Care - Information Sources Records reviewed: Previous records reviewed History/Review of Systems obtained from: Patient Exam limitations: Clinical condition (patient with STM deficits; able to engage in exam and conversation) - History of Present Illness Update Brief HPI Update: This is a quiet reserved 70-year-old woman who has had a significant decline in her health over the last several months. Please see this note 02/13/21 for further extended HPI. Patient did receive 1 L of normal saline last week, with repeat labs this week. Her calcium is continued to increase at 10.7, she also presents with worsening kidney function of 1.7 and a GFR of 30 despite decreasing Bumex to 2 mg daily versus 2 twice daily. Patient continues to complain of persistent lethargy, intermittent tremors, difficulty walking this is attributed both to weakness and to her lower extremity numbness and pain. This is more prominent on her left side, particularly located in her left ankle and hip. She was asked to come in and get a liter of normal saline today, and was able to meet Dr. Pulliam briefly, who will initiate Zometa. She remains quite reticent regarding testing and further follow-up, asking if she is going to have to come every week. We discussed most likely until we understand better that underlying etiology of what is going on, as well as stabilize her labs. She is encouraged to "hang in there" with this so we can get her feeling better. At this point she is agreeable to this.Unfortunately because of COVID, her is not with her, but will be picking her up later. She does have a quiet demeanor, is starting to initiate conversation with DISCHARGE PLANNER, and ask some clarifying questions that is not present confused. Patient does have CHF of unknown etiology, they are working her up for amyloidosis. We need to rule out myeloma first, but of note patient also has a history of breast cancer. Her lungs are clear, she has trace pedal edema though I suspect this is more dependent in nature and related to her albumin.She reports her weight has remained stable and steady at 94, she is trying to eat more, but finds this challenging.This is related to some difficulty swallowing, but reports this has not worsened, as well as early satiety. Past Medical History: CHF, high cholesterol, tremors, breast cancer, chronic vision loss, anxiety, osteoarthritis, fatigue, mastectomy left 91, right 94 Social History - Living Situation Living arrangement: At home Living Situation: With spouse/s.o. Support System: Patient has been having on [facility] since 1999 when they retired. She and her has been over 48 years, she does have a son. [place] [id number] see on a regular basis. They have been quite isolated with [place] [id number], and with very little social support Medications/Allergies - Medications Home Medications: Ambulatory Orders Medication Instructions Recorded Confirmed Gabapentin 300 mg PO 5XD 10/19/18 02/20/21 Amitriptyline [Elavil] 25 tab PO DAILY 12/27/20 02/18/21 FLUoxetine [PROzac] 10 tab PO DAILY 12/27/20 02/20/21 Potassium Chloride [Micro-K] 20 mg PO DAILY 12/27/20 02/20/21 Cholecalciferol [Vitamin D3] 1,000 intlu PO DAILY 01/24/21 02/20/21 Magnesium Oxide [Magnesium] 400 mg PO DAILY 01/24/21 02/20/21 Bumetanide 1 mg PO DAILY 02/18/21 02/20/21 Latanoprost 0.005% Ophth Drops 1 drops EACHEYE DAILY 02/18/21 02/20/21 [Xalatan Ophth Drops] diltiaZEM CD [Cardizem Cd] 120 mg PO DAILY 02/18/21 02/20/21 - Allergies Allergies/Adverse Reactions: Allergies Allergy/AdvReac Type Severity Reaction Status Date / Time amoxicillin Allergy Rash Verified 12/27/20 15:22 Review of Systems - Constitutional Constitutional: reports: Fatigue (remains persistent), Weakness (very sedentary; has not gotten walker; did get four pronged cane), Poor appetite, Weight loss (94). denies: Fever - Eyes Eyes: reports: Vision loss - Ears, Nose & Throat Ears, Nose & Throat: reports: Hearing loss, Dry mouth. denies: Mouth lesions - Cardiovascular Cardiovascular: reports: Palpitations (feels heard beating fast at times), Lightheadedness, Exertional dyspnea, Decr. exercise tolerance - Respiratory Respiratory: reports: SOB with exertion. denies: Cough, SOB at rest - Gastrointestinal Gastrointestinal: reports: Poor appetite, Early satiety, Other (taste changes; getting one enures raquel a day). denies: Nausea, Bloating - Musculoskeletal Musculoskeletal: reports: Muscle aches, Stiffness, Limited range of motion, Muscle weakness, Assistive devices (reminded to get walker;) - Integumentary Integumentary: reports: Dryness - Neurological Neurological: reports: General weakness, Headache, Memory problems (mild), Abnormal gait, Other (voice changes) - Psychiatric Psychiatric: reports: Depression, Anxiety - Endocrine Endocrine: reports: Intolerance to cold - Hematologic/Lymphatic Hematologic/Lymph: denies: Recurrent infections - All Other Systems All Other Systems: reports: Reviewed and negative Physical Exam - Vital Signs Temperature: 36.2 C Pulse Rate: 100 Respiratory Rate: 20 Blood Pressure: 101/70 - Physical Exam General Appearance: positive: Alert, Anxious, Cachetic Eyes Bilateral: positive: Normal inspection ENT: positive: Other (examination of teeth; appear healthy denies problems but may benefit from getting to dentist) Neck: positive: Trachea midline, Stiff neck Cardiovascular: positive: Tachycardia Respiratory: positive: No respiratory distress (breathlessness noted with increased conversation), Diminished in bases. negative: Wheezes, Rales Abdomen: positive: Soft Skin: positive: Pallor, Dryness Extremities: positive: Pedal edema (trace pedal edema up to mid calf; no change) Neurologic/Psychiatric: positive: Oriented x3, Weakness, Depressed mood/affect, Flat affect Palliative Care - POLST Patient has POLST: No Pain: Pain unchanged, Location (left hip and leg) Tiredness/Fatigue: Severe (7-10) Drowsiness/Sedation: Moderate (4-6) Nausea: None Anorexia: Moderate (4-6), Weight loss Dyspnea: Moderate (4-6) Depression: Mild (1-3) Anxiety: Moderate (4-6) Feelings of wellbeing/Perceived Quality of Life: Fair, Acceptable, Worsening Sleep: Sleeps well Constipation: No Performance Status: Patient continues with poor activity tolerance,. They are trying to obtain a walker, did encourage her to increase her activity as she is comfortable. She does have difficulty going up and down her stairs. This is related to balance and strength. Did offer patient physical therapy, at this point in time she declines - Palliative Care Discussion: Patient continues to be somewhat perplexed by all of the happenings, we did review because of her abnormalities of her labs we are trying to help her feel better. She was open to starting the Zometa. Appreciated Dr. Pulliam introducing himself, her is going to need to be there for her appointment. She remains quite frail, and continued challenged by her decline in health. But is starting to be more curious and asking more questions. Results - Lab Results Lab results reviewed: Yes Lab and Imaging Results: Total protein 6.3, sodium 134, potassium 3.9, calcium 10.7, total bili 1.1, alk phos 298, creatinine 1.7, GFR 30 Impression and Recommendations - Palliative Care Impression: This is a 70-year-old woman who has had recent change in health status with CHF etiology weight loss, dysphagia, hypercalcemia, worsening kidney function, and concern for development of amyloidosis. Patient has high anxiety regarding interactions with medical system, and had canceled all appointments after 01/24. Palliative care met with patient and , would like to pursue further expl oring underlying etiology of her decline, but balance this with her goals. Palliative care continue to work with symptoms, and coordinate care with oncology team and cardiology. Recommendations/Counseling Done: 1. Hypercalcemia. Patient with repeat labs with calcium increasing to 10.7, despite liter of fluids last week. Patient received 3 g of Zometa via oncology today. She is still pending her oncology appointment, but will get supportive care with continued labs and careful watching. 2. CKD. Creatinine is worsening to 1.7, patient with no worsening lower extremity edema, lungs are clear. Will decrease her Bumex to 1 mg daily, patient to continue daily weights and monitoring of symptoms. 3. CHF. Patient at high risk for exacerbation, with current IV fluids, will adjust diuretics carefully but patient with poor intake and no recent exacerabations. 4. Weight loss. Remains steady at 94, but this is still a significant weight loss from her baseline 110. She is trying to increase her calories, swallowing remains problematic but has not worsened and may been improved. Will make referral to dietitian. 5. Anxiety. This is multifactorial, continue to build rapport with patient, and tease out barriers for follow-through on treatment plan. We will continue to help navigate healthcare system. Did provide [place] pass and disabled parking. 6. Advanced care planning. Will await further oncology appointment, to help inform prognosis and advanced care planning. Patient accepting of palliative care support, will continue to build rapport. 30 minutes with review of labs, coordination of care with oncology team, [id number] with patient for counseling and exam.
== END 2021-02-19 13:31 | disposition home or self-care (01) ==
LOC: PC 13:30
PROVIDERS: ATTEND Nurse Practitioner Adult Health
DX: Z51.5 Encounter for palliative care (principal); E83.52 Hypercalcemia; N18.30 Chronic kidney disease, stage 3 unspecified; I50.9 Heart failure, unspecified; R63.4 Abnormal weight loss; F41.9 Anxiety disorder, unspecified
CPT/HCPCS: 99214

== ENCOUNTER 2021-03-05 08:00 | Outpatient (CLI) | payer MEDICARE, OTHER | END 2021-03-05 23:59 | disposition home or self-care (01) | LOC: LAB 08:00 | PROVIDERS: ATTEND Internal Medicine | DX: R77.8 Other specified abnormalities of plasma proteins (principal); E83.52 Hypercalcemia; I50.9 Heart failure, unspecified; N18.32 Chronic kidney disease, stage 3b; D75.839 Thrombocytosis, unspecified; Z85.3 Personal history of malignant neoplasm of breast; Z90.13 Acquired absence of bilateral breasts and nipples | CPT/HCPCS: 81599; 82570; 83883; 84156; 84166; 86335 ==

== ENCOUNTER 2021-03-05 11:15 | Outpatient (CLI) | payer MEDICARE, OTHER ==
--- NOTE | 2021-03-05 13:58 | CONSULTATION NOTE ---
Palliative Care Follow Up - Referral Referring Provider: Dr. Hughes Time of Visit: 11:00 45 min Referral setting: [facility] Referral Reason: FTT/LE edema/Amyloidosis/Goals of Care - Information Sources Records reviewed: Previous records reviewed History/Review of Systems obtained from: Patient Exam limitations: Clinical condition (anxious/mild STM deficits) - History of Present Illness Update Brief HPI Update: This is a 70-year-old woman who has had a significant decline in health over the last several months. She is currently being worked up for abnormally elevated light chain concerning for myeloma/amyloidosis. She has had increased calcium, though this looks better after Zometa last week, continued concern for kidney function, has CHF of unknown etiology, presents with worsening lower extremity edema today. She also describes increased weakness, she has peripheral neuropathy and numbness particularly in her left leg, as well as increased trouble with swallowing. She does have considerable anxiety, thus had not finished her work-up and cancelled all tests after her last oncology meeting, she is meeting with Dr. Pulliam today, hoping this will ameliorate some of her anxiety if has more options though still is going to need a fairly extensive work-up. Unfortunately though had made arrangements for her to be here, he did not come in. She did meet with oncology, and her understanding is it is still important to have some of these tests, and at this point has agreed to bone marrow biopsy, labs, and a fat pad biopsy. The goal is to delay progression of her disease, identify a treatment regimen that is acceptable to patient, as well as manage her quality of life issues. Patient is quite cachectic, though her weight is up a little related to her lower extremity edema. She has diminished breath sounds in her bases, no crackles. Denies increased shortness of breath. She has been on 1 mg of Bumex, without any change in kidney function, will increase back to 2 mg. She is trying to eat more though this is difficulty as she does have a feeling of choking and things are sticking in her throat. She denies nausea, GERD, has had some mild constipation. She does report weakness, difficulty with walking has not gotten a walker yet. She remains quite anxious about pending tests though these were [place] and not at [place]. This will decrease the barrier for her participation. She would like to get stronger, and concerned about her swallowing issues, will go ahead and order home health physical therapy and speech therapy for swallowing. Past Medical History: CHF, hypercholesteremia, tremors, history of breast cancer, chronic vision loss, anxiety, osteoarthritis, fatigue, mastectomy left 91, right 94. Social History - Living Situation Living arrangement: At home Living Situation: With spouse/s.o. Support System: Patient has been on [facility] since 1999 when both of them retired. She and her have been over 48 years, they have 1 son. [place] Her sister and [id number] [place] whom they see on a regular basis. They have been quite isolated with [place] [id number], and very little social support Medications/Allergies - Medications Home Medications: Ambulatory Orders Medication Instructions Recorded Confirmed Gabapentin 300 mg PO 5XD 10/19/18 03/05/21 Amitriptyline [Elavil] 25 tab PO DAILY 12/27/20 03/05/21 FLUoxetine [PROzac] 10 tab PO DAILY 12/27/20 03/05/21 Potassium Chloride [Micro-K] 20 mg PO DAILY 12/27/20 03/05/21 Cholecalciferol [Vitamin D3] 1,000 intlu PO DAILY 01/24/21 03/05/21 Magnesium Oxide [Magnesium] 400 mg PO DAILY 01/24/21 03/05/21 Bumetanide 1 mg PO DAILY 02/18/21 03/05/21 Latanoprost 0.005% Ophth Drops 1 drops EACHEYE DAILY 02/18/21 03/05/21 [Xalatan Ophth Drops] diltiaZEM CD [Cardizem Cd] 120 mg PO DAILY 02/18/21 03/05/21 LORazepam [Ativan] 0.5 mg PO ONCE 1 Days #2 tablet 03/05/21 - Allergies Allergies/Adverse Reactions: Allergies Allergy/AdvReac Type Severity Reaction Status Date / Time amoxicillin Allergy Rash Verified 12/27/20 15:22 Review of Systems - Constitutional Constitutional: reports: Fatigue (remains persistent), Weakness (very sedentary; has not gotten walker; did get four pronged cane), Poor appetite, Weight loss (94). denies: Fever - Eyes Eyes: reports: Vision loss - Ears, Nose & Throat Ears, Nose & Throat: reports: Hearing loss, Dry mouth, Other (difficulty swallowing; feels like things get "stuck"). denies: Mouth lesions - Cardiovascular Cardiovascular: reports: Palpitations (feels heart beating fast at times), Edema (a little worse), Lightheadedness, Exertional dyspnea, Decr. exercise tolerance. denies: Chest pain - Respiratory Respiratory: reports: SOB with exertion. denies: Cough, SOB at rest - Gastrointestinal Gastrointestinal: reports: Poor appetite, Early satiety, Other (taste changes; getting one enures i an a day). denies: Nausea, Bloating - Musculoskeletal Musculoskeletal: reports: Muscle aches, Stiffness, Limited range of motion, Muscle weakness, Assistive devices (reminded to get walker;) - Integumentary Integumentary: reports: Dryness - Neurological Neurological: reports: General weakness, Headache, Memory problems (mild), Abnormal gait, Other (voice changes) - Psychiatric Psychiatric: reports: Depression, Anxiety - Endocrine Endocrine: reports: Intolerance to cold - Hematologic/Lymphatic Hematologic/Lymph: denies: Recurrent infections - All Other Systems All Other Systems: reports: Reviewed and negative Physical Exam - Vital Signs Pulse Rate: 66 Respiratory Rate: 18 O2 Saturation: 98 (ra @ rest) Blood Pressure: 105/69 - Physical Exam General Appearance: positive: Alert, Anxious, Cachetic Eyes Bilateral: positive: Normal inspection ENT: positive: No signs of dehydration Neck: positive: Trachea midline, Stiff neck Cardiovascular: positive: Regular rate & rhythm Respiratory: positive: No respiratory distress (breathlessness noted with increased conversation), Diminished in bases. negative: Wheezes, Rales Abdomen: positive: Soft Skin: positive: Pallor, Dryness Extremities: positive: Pedal edema (1-2+ up to mid calf; increased from last exam) Neurologic/Psychiatric: positive: Oriented x3, Weakness, Depressed mood/affect, Flat affect Palliative Care - POLST Patient has POLST: No POLST Status: Full Code Pain: Pain unchanged, Location (left leg/ankle uses gabapentin) Tiredness/Fatigue: Severe (7-10) Drowsiness/Sedation: Mild (1-3) Nausea: None Anorexia: Moderate (4-6), Weight loss Dyspnea: Moderate (4-6) Depression: Moderate (4-6) Anxiety: Severe (7-10) Feelings of wellbeing/Perceived Quality of Life: Fair, Worsening Sleep: Sleeps well Constipation: Yes, Unmanaged Performance Status: Patient is ambulatory, but would benefit from a walker particularly for balance. She will report she pulls herself up the stairs, does have increased weakness, decreased activity tolerance. Has become more sedentary though was quite active at baseline. - Palliative Care Discussion: Met with patient after her oncologist, unfortunately Lincoln did not come in. Patient's understanding is that she needs to continue with the tests, [place] She is still somewhat hesitant, does understand there is some seriousness in particular regarding understanding what is going on. We did review her anxiety pubic around bone marrow, reassured that they will make sure that this is comfortable for her. Encouraged her to bring Lincoln in for their next appointment. Will call him tomorrow and update after labs available. She is not clear that she really wants to go through with all this, we discussed that any point she can transition to supportive care only. But if she were to not get treatment, concern would be that this would lead to more rapid demise. And would recommend transitioning to hospice team. She verbalized understanding regarding this. Impression and Recommendations - Palliative Care Impression: This is a 70-year-old woman who has had significant decline in her health over the last several months, mostly attributed to her congestive heart failure of unknown etiology. She is getting worked up for concerns regarding myeloma versus amyloid diagnosis, secondary to elevated light chain. She is quite anxious regarding pending tests, continues with moderate to high symptom burden, and still somewhat ambivalent about goals. Palliative care meeting with patient for quality of life issues, defining goals of care, and coordination of care Recommendations/Counseling Done: 1. Constipation. Patient reports increased difficulty with bowels, given her swallowing difficulties recommended initiating MiraLAX half capful daily, written instructions provided. 2. CHF. Patient presents with worsening lower extremity edema, will increase Bumex back to 2 mg, finding balance between patient's kidney function, hypotension, and edema is problematic. Patient also presents most likely with dependent edema and poor nutrition. She will get some compression stockings, to help, encouraged to elevate her legs more frequently. She is seeing cardiology tomorrow, give status update. We will also get physical therapy involved can do some more exercises also to supplement this. 3. Generalized weakness. Patient has had decline in function this is multifactorial. Patient would like to get stronger. Recommended she obtain a walker, will go go ahead and order home physical therapy. This would be for safety, particularly navigating stairs, equipment needs, strengthening, and balance. 4. Dysphagia. Patient reports she does have some episodic choking or difficulty swallowing. Her voice is somewhat weaker. Unclear the etiology, will get an evaluation through speech therapy. Counseling provided regarding speech therapy address his swallowing problems as well as aspiration precautions and may be some suggestions for diet modifications to assist her and her . Patient has had a bout of 15 pound weight loss through this episode. Encouraged to continue to try and get a couple Ensure in and eat small frequent meals. 5. Amyloidosis. Patient is still getting work-up, remains somewhat hesitant regarding the burden of testing. Encouraged given it will all be up at the hospital, to follow through, to be able to see what and if her treatment options are. Patient remains again ambivalent regarding moving forward with treatment. Though she is not anxious to transition to end-of-life care either. We will continue to help patient with coordination of care and encourage her with appropriate support. 7. Advanced care planning. Counseling provided regarding patient's goals of care, can at any point transition to comfort or supportive care only. Patient has had decline both functionally, unclear extent of cognitive decline. She does present with ability to engage in conversation, does appear to have some level of understanding of information presented, may ask speech to do a [place] on her to get a baseline. 45 minutes Review of oncology notes, labs, [id number] with patient, counseling regarding anticipatory guidance, goals of care, encouragement to follow through on testing.
== END 2021-03-05 11:16 | disposition home or self-care (01) ==
LOC: PC 11:15
PROVIDERS: ATTEND Nurse Practitioner Adult Health
DX: Z51.5 Encounter for palliative care (principal); R60.0 Localized edema; I50.9 Heart failure, unspecified; R77.8 Other specified abnormalities of plasma proteins; R53.83 Other fatigue; M62.81 Muscle weakness (generalized); R63.0 Anorexia; R63.4 Abnormal weight loss; R13.10 Dysphagia, unspecified; K59.00 Constipation, unspecified; G62.9 Polyneuropathy, unspecified; R41.3 Other amnesia; F41.9 Anxiety disorder, unspecified; Z79.899 Other long term (current) drug therapy
CPT/HCPCS: 99215

== ENCOUNTER 2021-03-07 08:41 | Outpatient (CLI) | payer MEDICARE, OTHER ==
[~2021-03-07 08:41] MED LIST changes: -BRIMONIDINE 0.2% OPHTH DROPS 5 ML ONE; -BSS/LIDOCAINE/EPINEPHRINE 1 ML SYRINGE ONE; -CYCLOPENTOLATE 1% OPHTH DROPS 2 ML ONE; -KETOROLAC 0.45% OPHTH DROPS ONE; -PHENYLEPHRINE 2.5% OPHTH 2 ML DROPS ONE; -PROPARACAINE 0.5% OPHTH DROPS 15 ML ONE; -TIMOLOL 0.5% OPHTH DROPS ONE; -TRIAMCIN/MOXIFLOX OPHTHALMIC 0.6 ML VIAL IO ONE; -VANCOMYCIN OPHTHALMI 8MG/0.8ML 8 MG/0.8 ML SYRINGE IO ONE; +lidocaine 1% 20 ML MDV ONE
[2021-03-07] MEDS: LACTATED RINGERS 1,000 ML IV ONE ×2 (09:11→10:38)
[2021-03-07 09:41] LABS: INR 1.1 (0.8-1.2); PT - PROTHROMBIN TIME 12.2 secs (9.9-12.6)
[2021-03-07 09:48] LABS: PARTIAL THROMBOPLASTIN TIME 28.9 secs (24.9-33.3)
[2021-03-07] MEDS ORDERED: fentaNYL 100 MCG/2 ML VIAL ONE (09:59)
[2021-03-07] MEDS ORDERED: MIDAZOLAM 2 MG/2 ML VIAL ONE (09:59)
[2021-03-07 11:30] VITALS: BP 112/65
--- NOTE | 2021-03-07 12:30 | CT Report ---
PROCEDURE: BONE MARROW BX W/ASPIRATION INDICATIONS: LIGHT CHAIN DISEASE, THROMBOCYTOSIS TECHNIQUE: The indications, alternatives, benefits, risks, and possible complications of the procedure were comm unicated to the patient. Informed written consent from the patient was obtained and placed in the art. Continuous EKG and hemodynamic monitoring was started by trained personnel. For radiation dose reduction, the following was used: automated exposure control, adjustment of mA and/or kV according to patient size. The patient was brought to the CT suite and metal annealer spiral CT imaging was performed with localization g rid. The appropriate site for percutaneous access to the biopsy target was marked, was prepped and d raped sterilely, and was infused with local anaesthesia. Under CT guidance, a core biopsy trocar and needle set was advanced to the biopsy target, and specimen(s) were obtained. The trocar and needle were then removed, and the patient was sent for post-procedure monitoring. COMPARISON: None. FINDINGS: Biopsy site: Left posteriorly iliac crest Needle: 11 gauge biopsy needle with introducer trocar. Number of passes: 1 with aspirate Medications: 1% lidocaine for local anaesthesia. IV Fentanyl and Versed for conscious sedation (see nursing record). Complications: None. IMPRESSION: Successful CT-guided left posterior iliac crest bone marrow aspirate and bone marrow bio psy. Reviewed by: Rakesh Magallanes MD on 03/07/2021 12:28 PM PST Approved by: Rakesh Magallanes MD on 03/07/2021 12:28 PM PST Station ID: [id number]
== END 2021-03-07 08:42 | disposition home or self-care (01) ==
LOC: DI 08:41
PROVIDERS: ATTEND Internal Medicine
DX: R77.8 Other specified abnormalities of plasma proteins (principal); D75.839 Thrombocytosis, unspecified; I50.9 Heart failure, unspecified
CPT/HCPCS: 36415; 38222; 77012; 85610; 85730; J7120; 85014; 85018

== ENCOUNTER 2021-03-26 10:30 | Outpatient (CLI) | payer MEDICARE, OTHER ==
--- NOTE | 2021-03-26 13:08 | CONSULTATION NOTE ---
Palliative Care Follow Up - Referral Referring Provider: Dr. Hughes Time of Visit: [id number] Referral setting: Home Referral Reason: [place] Amyloidosis/Muscle Weakness/Wt. Loss/ACP - Information Sources Records reviewed: Previous records reviewed History/Review of Systems obtained from: Patient Exam limitations: Clinical condition (mild STM) - History of Present Illness Update Brief HPI Update: This is a quiet 70-year-old woman who has had continued decline with her health over the last several months, did have her bone marrow biopsy that did show amyloidosis. She is awaiting final follow-up with her oncologist, but saw her PCP yesterday who delivered the news. She does understand the seriousness of this illness, and is quite reflective on her end-of-life today. Unfortunately her is gone to an eye appointment, but it does leave us some time to talk about her feelings regarding this. She continues with lower extremity edema, diminished breath sounds in the base, but no increasing shortness of breath. She was seen by Dr. Turner, who increased her Bumex to 1 mg twice daily, and requested she take 60 mEq of potassium, but has only been taking 20 secondary to discomfort with tabs. Her BUN remains slightly elevated at 27 and creatinine 1.5 on 03/19 her labs are closely being monitored. She continues with poor nutritional status, increased cachexia, total protein 5.5 and albumin 2.7.She does have ongoing persistent peripheral neuropathy currently controlled with her gabapentin, she is com plaining of dry mouth on examination does have some oral candidiasis. She has been given some direction and addition of a new medication mentalis on . to add as "as needed" patient does not recall specific directions regarding this. She continues with some hypotension 102/64, she is having trouble getting adequate calories related to mild swallowing difficulties, taste changes, and early satiety. She has started with physical home therapy, she has not seen the speech therapist yet for swallowing. Her goals are to be able to work in the garden, she is willing to consider treatment options in the context of quality of life, she has had chemotherapy in the past because of her breast cancer. She does recognize this is different, but is willing to consider treatment in the context of quality and quantity of life. Past Medical History: CHF, hypercholesteremia, tremors, history of breast cancer, chronic vision loss, anxiety, osteoarthritis, fatigue, mastectomy on left 91, on right 89. Social History - Living Situation Living arrangement: At home Living Situation: With spouse/s.o. Support System: Patient has been on [facility] since 1999, with both she and her retired. They have been over 48 years, and have 1 son who lives not too far away. [place] has done a [place] Her sister and [id number] [place] whom they see on a regular basis. They have been quite isolated with COVID-19 and present with very little social support Medications/Allergies - Medications Home Medications: Ambulatory Orders Medication Instructions Recorded Confirmed Gabapentin 300 mg PO 5XD 10/19/18 03/27/21 Amitriptyline [Elavil] 25 tab PO DAILY 12/27/20 03/27/21 FLUoxetine [PROzac] 10 tab PO DAILY 12/27/20 03/27/21 Potassium Chloride [Micro-K] 60 mg PO DAILY MDD has been takin 12/27/20 03/27/21 20-40 Cholecalciferol [Vitamin D3] 1,000 intlu PO DAILY 01/24/21 03/27/21 Magnesium Oxide [Magnesium] 400 mg PO DAILY 01/24/21 03/27/21 Bumetanide 1 mg PO BID 02/18/21 03/27/21 Latanoprost 0.005% Ophth Drops 1 drops EACHEYE DAILY 02/18/21 03/27/21 [Xalatan Ophth Drops] diltiaZEM CD [Cardizem Cd] 120 mg PO DAILY 02/18/21 03/27/21 Nystatin [Mycostatin] 5 ml PO TID MDD 7 days 03/27/21 03/27/21 metOLazone [Zaroxolyn] 2.5 mg PO .3X WEEK PRN 03/27/21 03/27/21 - Allergies Allergies/Adverse Reactions: Allergies Allergy/AdvReac Type Severity Reaction Status Date / Time amoxicillin Allergy Rash Verified 12/27/20 15:22 Review of Systems - Constitutional Constitutional: reports: Fatigue (remains persistent), Weakness (very sedentary; has not gotten walker; did get four pronged cane), Poor appetite, Weight loss (94). denies: Fever - Eyes Eyes: reports: Vision loss - Ears, Nose & Throat Ears, Nose & Throat: reports: Hearing loss, Dry mouth - Cardiovascular Cardiovascular: reports: Palpitations, Lightheadedness, Exertional dyspnea, Decr. exercise tolerance - Respiratory Respiratory: reports: SOB with exertion. denies: Cough, SOB at rest - Gastrointestinal Gastrointestinal: reports: Poor appetite, Early satiety, Other (taste changes; getting one enures i an a day). denies: Nausea, Bloating - Musculoskeletal Musculoskeletal: reports: Muscle aches, Stiffness, Limited range of motion, Muscle weakness, Assistive devices (reminded to get walker;) - Integumentary Integumentary: reports: Dryness - Neurological Neurological: reports: General weakness, Headache, Memory problems (mild), Abnormal gait, Other (voice changes) - Psychiatric Psychiatric: reports: Depression, Anxiety - Endocrine Endocrine: reports: Intolerance to cold - All Other Systems All Other Systems: reports: Reviewed and negative Physical Exam - Vital Signs Temperature: 97.3 C Pulse Rate: 93 Respiratory Rate: 18 O2 Saturation: 92 Blood Pressure: 102/64 - Physical Exam General Appearance: positive: No acute distress, Alert, Cachetic (upper extremity wasting) Eyes Bilateral: positive: Normal inspection ENT: positive: Oral lesions (white patches tongue/candiasis) Neck: positive: Trachea midline Cardiovascular: positive: Regular rate & rhythm, Tachycardia Respiratory: positive: No respiratory distress, Diminished in bases. negative: Wheezes, Rales, Rhonchi Abdomen: positive: Non-tender, Soft Skin: positive: Pallor, Dryness Extremities: positive: Pedal edema (LE pitting edema up to mid thigh; reports no improvement or worsening with diuretic increase; has low albumin) Neurologic/Psychiatric: positive: Oriented x3, Mood/affect nml, Flat affect Palliative Care - POLST Patient has POLST: No POLST Status: Full Code Pain: Pain unchanged, Location (bilateral leg pain; managed with gabapentin) Tiredness/Fatigue: Severe (7-10) Drowsiness/Sedation: Mild (1-3) Nausea: None Anorexia: Moderate (4-6), Weight loss Dyspnea: Mild (1-3) Depression: Mild (1-3) Anxiety: Moderate (4-6) Feelings of wellbeing/Perceived Quality of Life: Fair, Worsening Sleep: Sleeps well Constipation: Yes Performance Status: Patient has somewhat of an ataxic gait, shuffled. She has gotten a walker but is not using it in the house. She is due to see physical therapy. Her goal is to be able work in the garden, she would like to get a little stronger and is worried about fall recovery. Request that she talk to her physical therapist about this.She is managing to pull herself up the stairs, though this does not sound safe. She is bathing independently. - Palliative Care Discussion: Unfortunately her is not present, had wanted to talk to them about advance care planning. She reports she is seeing her primary care yesterday, had delivered the bad news and the seriousness of her illness. We did discuss most likely has some treatment options, she can weigh those benefits and burdens of each treatment she is thinking she would at least give it a try. They have been making arrangements, reports they have both made arrangements to the [employer]. They do have 1 son, she is not sure how he is doing with this, though reports her is very upset. She herself is fairly pragmatic, but is grateful to have gone through the work-up to understand more about what is happening to her. Results - Lab Results Lab results reviewed: Yes Lab and Imaging Results: Post recent labs have her potassium at 3.2, BUN 27, creatinine 1.5, AST 109 ALT 76 alk phos 434, total protein 5.5, albumin 2.7 Impression and Recommendations - Palliative Care Impression: This is a 70-year-old woman who has had significant decline in her health over the last several months, she has gone through the work-up and is pending further treatment plan with oncology related to amyloidosis. She continues with moderate to high symptom burden, remains somewhat ambivalent about her goals but is thinking she would do treatment. Palliative care meeting with patient for quality of life issues, continued defining goals of care, and coordination of care. Recommendations/Counseling Done: 1. CHF. Patient presents with lower extremity edema, this is most likely multifactorial including her low proteins and amyloidosis. Patient's blood pressure is slightly low. She is currently on Bumex 1 mg twice daily D, Dr. Turner did add some metolazone as needed, patient needing more definition regarding this. Did write out instructions for metolazone half hour before Bumex 3 times a week for weight gain of greater than 2 pounds and 24 hours or 5 pounds in 1 week. Patient's lungs are clear, and no further cardiac symptoms. 2. Constipation. Patient continues with difficulty with bowels, reviewed bowel program. 3. Generalized weakness. Patient has had decline in function, this is multifactorial. She does have a walker now, physical therapy has started, her goals are for working in the garden and to be able to ambulate better. 4. Dysphagia. Patient does have episodic choking and difficulty swallowing. Unclear etiology, she will be seeing speech therapy. She is trying to modify diet. She continues with weight loss. 5. Amyloidosis. Patient relieved to have gotten through bone marrow biopsy, reports it was not that bad. She her PCP though did deliver the news yesterday, we did discuss most likely will be offered treatment options. She can continue to play those in the context of quality of life. She has done chemotherapy in the past with breast cancer, and remembers it not being so bad. Reminded her to make sure her comes with her in for appointment. We will continue to weigh benefits and burdens with her, she does understand the seriousness of her illness, but currently feels her quality of life is acceptable. 6. Hypokalemia. Patient has been instructed to increase her potassium up to 60 mg, she was having trouble with both swallowing and felt like it gave her palpi tations. Instructed her to take at least 40 mg, discussed strategies how to spread it out. Patient verbalized understanding. 7. Oral candidiasis patient complaining of dry mouth and discomfort, on examination does have oral candidiasis. Did go ahead and order nystatin swish and swallow 3 times a day for 1 week. 8. Advanced care planning unfortunately her is not present, did discuss patient's goals in the context of quality of life, she does not feel like her would be able to manage her at home at end-of-life, so does have some expressed concerns. They have done some preplanning, did go ahead and get plans. [place] community support otherwise. 45 minutes with greater than 50% of this done in counseling regarding goals of care, symptom management, anticipatory guidance, and coordination of care with oncology team
== END 2021-03-26 10:31 | disposition home or self-care (01) ==
LOC: PC 10:30
PROVIDERS: ATTEND Nurse Practitioner Adult Health
DX: Z51.5 Encounter for palliative care (principal); E85.81 Light chain (AL) amyloidosis; I50.9 Heart failure, unspecified; K59.00 Constipation, unspecified; G62.9 Polyneuropathy, unspecified; R53.1 Weakness; R13.10 Dysphagia, unspecified; R63.0 Anorexia; R63.4 Abnormal weight loss; E87.6 Hypokalemia; B37.0 Candidal stomatitis; R53.83 Other fatigue; Z79.899 Other long term (current) drug therapy
CPT/HCPCS: 99349

== ENCOUNTER 2021-04-09 12:46 | Outpatient (CLI) | payer MEDICARE, OTHER | END 2021-04-09 12:47 | disposition critical access hospital (66) | LOC: EMS 12:46 | DX: S01.81XA Laceration without foreign body of other part of head, initial encounter (principal); R53.1 Weakness; R42 Dizziness and giddiness; W18.39XA Other fall on same level, initial encounter; Y93.01 Activity, walking, marching and hiking; Y92.008 Other place in unspecified non-institutional (private) residence as the place of occurrence of the external cause | CPT/HCPCS: A0425; A0427 ==

== ENCOUNTER 2021-04-09 13:27 | Emergency (ER) | payer MEDICARE, OTHER ==
[2021-04-09 14:15] VITALS: BP 133/89
--- NOTE | 2021-04-09 14:21 | ED Physician Documentation ---
History of Present Illness - Stated complaint Stated Complaint: GLF - Chief complaint Chief Complaint: Trauma Hd/Nk - History obtained from History obtained from: Patient - History of Present Illness Timing: Today Pain level max: 3 Pain level now: 2 - Additonal information Additional information: Patient is a 70-year-old female who presents to the emergency department after a ground-level fall. She was getting out of a car on a driveway when she slipped fell backwards and struck her head on the pavement. She states she has a mild headache. No neck or back pain. No loss of consciousness. No nausea or vomiting. No seizure activity. Not on blood thinners. 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: Mastectomy HEENT: Cataracts - Present Medications Home Medications: Ambulatory Orders Medication Instructions Recorded Confirmed Gabapentin 300 mg PO 5XD 10/19/18 04/07/21 Amitriptyline [Elavil] 25 tab PO DAILY 12/27/20 04/07/21 FLUoxetine [PROzac] 10 tab PO DAILY 12/27/20 04/07/21 Potassium Chloride [Micro-K] 60 mg PO DAILY MDD has been takin 12/27/20 04/07/21 20-40 Cholecalciferol [Vitamin D3] 1,000 intlu PO DAILY 01/24/21 04/07/21 Magnesium Oxide [Magnesium] 400 mg PO DAILY 01/24/21 04/07/21 Bumetanide 1 mg PO BID 02/18/21 04/07/21 Latanoprost 0.005% Ophth Drops 1 drops EACHEYE DAILY 02/18/21 04/07/21 [Xalatan Ophth Drops] [id number] CD [Cardizem Cd] 120 mg PO DAILY 02/18/21 04/07/21 Nystatin [Mycostatin] 5 ml PO TID MDD 7 days 03/27/21 04/07/21 metOLazone [Zaroxolyn] 2.5 mg PO .3X WEEK PRN 03/27/21 04/07/21 Cyclophosphamide 50 mg PO OAW 04/04/21 04/07/21 Ondansetron Odt [Zofran Odt] 4 mg TL Q6H PRN #30 tab 04/08/21 dexAMETHasone [Decadron] 20 mg PO UD #20 tablet 04/08/21 - Allergies Allergies/Adverse Reactions: Allergies Allergy/AdvReac Type Severity Reaction Status Date / Time amoxicillin Allergy Rash Verified 04/09/21 13:37 - Social History Does the pt smoke?: No Smoking Status: Former smoker Does the pt drink ETOH?: No Does the pt have substance abuse?: No - Immunizations Immunizations are current?: Yes - POLST Patient has POLST: No PD ED PE NORMAL - Vitals Vital signs reviewed: Yes - General General: Alert and oriented X 3, No acute distress - HEENT HEENT: Atraumatic, PERRL, EOMI, Moist mucous membranes, Pharynx benign - Neck Neck: Supple, no meningeal sign, No bony TTP - Cardiac Cardiac: RRR - Respiratory Respiratory: No respiratory distress, Clear bilaterally - Abdomen Abdomen: Soft, Non tender, Non distended - Back Back: No spinal TTP - Derm Derm: Warm and dry - Extremities Extremities: No deformity, No tenderness to palpate, Normal ROM s pain - Neuro Neuro: Alert and oriented X 3, duck farmer 2-12 intact, No motor deficit, No sensory deficit, Normal speech Eye Opening: Spontaneous Motor: Obeys Commands Verbal: Oriented GCS Score: 15 - Psych Psych: Normal mood, Normal affect Results - Vitals Vitals: Vital Signs - 24 hr 04/09/21 04/09/21 13:29 14:14 Temperature 37.0 C Heart Rate 88 89 Respiratory 16 18 Rate Blood Pressure 126/82 H 133/89 H O2 Saturation 96 100 Oxygen O2 Source Room air - Rads (name of study) Head CT Radiology: Final report received, EMP read contemporaneously, See rad report (No acute abnormality) Cervical spine CT Radiology: Final report received, EMP read contemporaneously, See rad report (No acute abnormality) PD MEDICAL DECISION MAKING - ED course Complexity details: reviewed results, re-evaluated patient, considered differential, d/w patient ED course: No acute findings on head CT or cervical spine CT. Patient is asymptomatic. We will have her follow-up with her doctor for further care. No other injuries. Randall cavazos counseled regarding signs and symptoms for which I believe and urgent re- evaluation would be necessary. Patient with good understanding of and agreement to plan and is comfortable going home at this time This document was made in part using voice recognition software. While efforts are made to proofread this document, sound alike and grammatical errors may occur. Departure - Departure Disposition: 01 Home, Self Care Clinical Impression: Fall Qualifiers: Encounter type: initial encounter Qualified Code(s): W19.XXXA - Unspecified fall, initial encounter Head injury Qualifiers: Encounter type: initial encounter Qualified Code(s): S09.90XA - Unspecified injury of head, initial encounter Condition: Good Instructions: ED Head Injury Closed Follow-Up: Home Hughes MD [Primary Care Provider] - As Needed Comments: Your head CT and cervical spine CT did not show any acute abnormalities today. You can use Motrin or Tylenol as needed for any pain. Return if you worsen. Discharge Date/Time: 04/09/21 16:15
--- NOTE | 2021-04-09 15:04 | CT Report ---
PROCEDURE: CERVICAL SPINE WO INDICATIONS: fall, head/neck injury TECHNIQUE: Noncontrast 3 mm thick sections acquired from the skull base to the T4 level. Sagittal and coronal r eformats were then constructed. For radiation dose reduction, the following was used: automated exp osure control, adjustment of mA and/or kV according to patient size. COMPARISON: None. FINDINGS: Image quality: Excellent. Bones: No acute fractures or malalignment of the cervical spine. There is age indeterminate but like ly subacute to chronic superior endplate compression deformity of the T5 vertebral body. No asymmetri c widening of the posterior elements or facet joints. No significant perivertebral soft tissue change s or edema at this level. There is diffuse osteopenia. Multilevel cervical spondylosis.. Visualized superior ribs are intact. Soft tissues: Prevertebral soft tissues are normal in thickness. No paravertebral hematomas. No ap ical pneumothoraces. IMPRESSION: CT cervical spine without acute fracture or traumatic malalignment. However, there is an age-indeterm inate superior endplate compression deformity involving the T5 vertebral body. This is suspected to b e subacute to chronic in chronicity. Recommend correlation with examination. Diffuse osteopenia. Multilevel spondylosis. Reviewed by: Omar Valdes MD on 04/09/2021 2:02 PM [facility] Approved by: Omar Valdes MD on 04/09/2021 2:02 PM [facility] Station ID: [id number]
--- NOTE | 2021-04-09 15:07 | CT Report ---
PROCEDURE: HEAD WO INDICATIONS: fall, head/neck injury TECHNIQUE: Noncontrast 4.5 mm thick angled axial sections acquired from the foramen magnum to the vertex. For r adiation dose reduction, the following was used: automated exposure control, adjustment of mA and/or kV according to patient size. COMPARISON: None. FINDINGS: Image quality: Excellent. CSF spaces: Basal cisterns are patent. No extra-axial fluid collections. Ventricles are normal in size and shape. Brain: No midline shift. No intracranial masses or hemorrhage. No mass effect. Kimball-white matter i nterface is normal. There cerebral volume loss for age with resultant ventricular and sulcal prominen ce. There are periventricular and deep white matter chronic small vessel ischemic changes. Atheroscle rotic calcifications are noted in the intracranial segments of the bilateral internal carotid arterie s. Skull and face: There is a superficial scalp contusion over the right posterior vertex. Calvarium an d visualized facial bones are intact, without suspicious lesions. Sinuses: Visualized sinuses and mastoids are clear. IMPRESSION: CT head without acute intracranial abnormalities. No acute intracranial hemorrhage. Right posterior vertex scalp contusion without underlying acute calvarial fractures. Age-related senescent changes and sequela of chronic small vessel ischemic disease. Reviewed by: Omar Valdes MD on 04/09/2021 2:05 PM [facility] Approved by: Omar Valdes MD on 04/09/2021 2:05 PM [facility] [place] Station ID: [id number]
== END 2021-04-09 16:15 | disposition home or self-care (01) ==
LOC: EDUNIT# → EDSEX → ED 13:27
DX: S09.90XA Unspecified injury of head, initial encounter (principal); W01.198A Fall on same level from slipping, tripping and stumbling with subsequent striking against other object, initial encounter; Z87.891 Personal history of nicotine dependence; I10 Essential (primary) hypertension
CPT/HCPCS: 99282; 99284

== ENCOUNTER 2021-04-14 14:04 | Outpatient (CLI) | payer MEDICARE, OTHER ==
--- NOTE | 2021-04-14 15:46 | XRAY Report ---
PROCEDURE: Sacrum/Coccyx INDICATIONS: GLF TAILBONE, PAIN PRESISTANT AND WORSENING TECHNIQUE: 3 views of the sacrum and coccyx acquired. COMPARISON: None FINDINGS: Bones: No fractures or dislocations. No suspicious bony lesions. Mild articular osteophyte formati on at the bilateral hip joints. Soft tissues: Visualized bowel gas pattern is normal. No suspicious soft tissue densities. IMPRESSION: No acute fracture. No osseous lesion. If symptoms and/or clinical suspicion for pathology continue, f urther assessment with repeat plain films, or advanced imaging (e.g., CT, MRI, or bone scan) is recom mended for further assessment. Reviewed by: Dasha Kiran MD on 04/14/2021 3:45 PM PST Approved by: Dasha Kiran MD on 04/14/2021 3:45 PM PST Station ID: [id number]
== END 2021-04-14 14:05 | disposition home or self-care (01) ==
LOC: DI.S 14:04
PROVIDERS: ATTEND Nurse Practitioner Adult Health
DX: M53.3 Sacrococcygeal disorders, not elsewhere classified (principal)

== ENCOUNTER 2021-04-15 15:15 | Outpatient (CLI) | payer MEDICARE, OTHER ==
--- NOTE | 2021-04-15 18:04 | CONSULTATION NOTE ---
Palliative Care Follow Up - Referral Referring Provider: Dr. 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 She has had continued decline in her health over the last several months, has had sign ificant difficulty with lower extremity edema, fluctuating CHF, poor nutritional status, cachexia, oral candidiasis, and functional decline.Unfortunately she had a fall on return home last week from a trip, and fell on her tailbone, hit her head, and was seen at the ED. She had a CT of the cervical spine that did not show any acute fracture traumatic malignant malalignment, it did show though mos t likely chronic compression fracture of T5 she also had a head CT with no acute abnormalities.Patient called yesterday because of persistent tailbone pain, difficulty sitting or finding comfortable position, this is not improved since her fall last week, and was wondering if she "broke it". She was able to go the [facility], and x-ray was negative. On examination she does have bruising over her tailbone as well as to the right a large hematoma with some swelling.She continues with difficulty walking, balance, she has longstanding neuropathic pain and complaints for lower extremity on the left. She has been taking gabapentin 500 mg total in 24 hours for greater than a year with good results. She has had difficulty finding balance with her CHF between hypertension, hypokalemia, and lower extremity edema. Today she is feeling quite lightheaded, her blood pressure at rest is 92/52, with a pulse of 91, with standing it drops to 80/44, with a pulse of 106. We did review and pull out all her medications, she has been taking Bumex 2 mg twice daily as this is what is on the bottle. She was instructed to decrease to 1 tab daily.We also spoke together with her , patient does have a history of depression, she has a very flat affect, is feeling more stressed and depressed, we have agreed to increase her Prozac from 10 to 20 mg.She is being seen by home health physical therapy as well as speech therapy, she is still having trouble eating, and continues to lose weight, today her weight is 91. Past Medical History: CHF, hypercholesteremia, tremors, history of breast cancer, chronic vision loss chronic hearing loss, anxiety, osteoarthritis, fatigue, mastectomy on left 1990, on right 1993 Social History - Living Situation Living arrangement: At home Living Situation: With spouse/s.o. Medications/Allergies - Medications Home Medications: Ambulatory Orders Medication Instructions Recorded Confirmed Gabapentin 300 mg PO .2 AM 3 PM 10/19/18 04/15/21 Amitriptyline [Elavil] 25 tab PO DAILY 12/27/20 04/15/21 FLUoxetine [PROzac] 20 tab PO DAILY 12/27/20 04/15/21 Potassium Chloride [Micro-K] 60 mg PO DAILY MDD has been takin 12/27/20 04/15/21 20-40 Cholecalciferol [Vitamin D3] 1,000 intlu PO DAILY 01/24/21 04/15/21 Magnesium Oxide [Magnesium] 400 mg PO DAILY 01/24/21 04/15/21 Bumetanide 2 mg PO DAILY 02/18/21 04/15/21 Latanoprost 0.005% Ophth Drops 1 drops EACHEYE DAILY 02/18/21 04/15/21 [Xalatan Ophth Drops] diltiaZEM CD [Cardizem Cd] 120 mg PO DAILY 02/18/21 04/15/21 metOLazone [Zaroxolyn] 2.5 mg PO .3X WEEK PRN 03/27/21 04/15/21 Cyclophosphamide 50 mg PO OAW 04/04/21 04/15/21 Ondansetron Odt [Zofran Odt] 4 mg TL Q6H PRN #30 tab 04/08/21 04/15/21 dexAMETHasone [Decadron] 20 mg PO UD #20 tablet 04/08/21 04/15/21 Fluconazole [Diflucan] 100 mg PO ONCE MDD 2ND DOSE 3 DAYS 04/15/21 04/15/21 - Allergies Allergies/Adverse Reactions: Allergies Allergy/AdvReac Type Severity Reaction Status Date / Time amoxicillin Allergy Rash Verified 04/09/21 13:37 Review of Systems - Constitutional Constitutional: reports: Fatigue (remains persistent), Weakness (very sedentary; has not gotten walker; did get four pronged cane), Poor appetite, Weight loss (94). denies: Fever - Eyes Eyes: reports: Vision loss - Ears, Nose & Throat Ears, Nose & Throat: reports: Hearing loss, Dry mouth - Cardiovascular Cardiovascular: reports: Palpitations, Lightheadedness, Exertional dyspnea, Decr. exercise tolerance - Respiratory Respiratory: reports: SOB with exertion. denies: Cough, SOB at rest - Gastrointestinal Gastrointestinal: reports: Poor appetite, Early satiety, Other (taste changes; getting one enures in a day). denies: Nausea, Bloating - Musculoskeletal Musculoskeletal: reports: Muscle aches, Stiffness, Limited range of motion, Muscle weakness, Assistive devices (reminded to get walker;) - Integumentary Integumentary: reports: Dryness - Neurological Neurological: reports: General weakness, Headache, Memory problems (mild), Abnormal gait, Other (voice changes) - Psychiatric Psychiatric: reports: Depression, Anxiety - Endocrine Endocrine: reports: Intolerance to cold - Hematologic/Lymphatic Hematologic/Lymph: denies: Recurrent infections - All Other Systems All Other Systems: reports: Reviewed and negative Physical Exam - Vital Signs Temperature: 97.9 C Pulse Rate: 91 (standing 106) Respiratory Rate: 16 O2 Saturation: 92 Blood Pressure: 92/52 (80/44) - Physical Exam General Appearance: positive: Alert, Anxious, Cachetic Eyes Bilateral: positive: No scleral icterus ENT: positive: Other (continues with white patches on tongue/buccal) Neck: positive: Trachea midline, Stiff neck Cardiovascular: positive: Tachycardia Respiratory: positive: No respiratory distress, Diminished in bases. negative: Wheezes, Rales, Rhonchi Abdomen: positive: Soft Skin: positive: Pallor, Dryness, Bruising (tailbone and hematoma right buttock area tender to touch) Extremities: positive: Pedal edema (mid calf 2+/less than previously) Neurologic/Psychiatric: positive: Oriented x3, Weakness, Depressed mood/affect, Flat affect Palliative Care - POLST Patient has POLST: No Pain: Pain unchanged (left leg neuropathy; move balance issues), Pain worsening (tailbone/bottom from acute fall) Tiredness/Fatigue: Moderate (4-6) Drowsiness/Sedation: Mild (1-3) Nausea: None Anorexia: Moderate (4-6), Weight loss (91) Dyspnea: Mild (1-3) Depression: Severe (7-10) Anxiety: Mild (1-3) Feelings of wellbeing/Perceived Quality of Life: Fair, Worsening Sleep: Sleeps well Constipation: Yes, Managed (using miralax) Performance Status: Patient remains quite frail, she is ambulatory in the house, her gait is slightly ataxic due to her peripheral neuropathy. She has obtained a walker, she is doing physical therapy, though with not much improvement. She did have a ground-level fall the led to an ED visit. She still has trouble navigating the stairs, secondary to strength. Continues to present with slight decline in functional status - Palliative Care Discussion: Patient did have an meeting with the oncology PA for chemo teaching. has been setting the information, and was present with her for the visit. She reports it was difficult as she could not hear her, and is somewhat anxious about pending treatment. She did have treatments several years ago for breast cancer, though understands this treatment is different. Patient has been willing to at least trial it, is willing to support patient's decision either way. feels very sad, we also discussed about patient's persistent depression. He reports she has had to be treated psychiatrically before, we did discuss in the context of this I could certainly bump up her Prozac, and she does feel like that would be of help. We may also look at adding some Abilify if not effective.They are not interested in pursuing a yet another referral, it is difficult as it is for her multiple medical appointments.She is interested though and if I can find a local licensed investment sales assistant, and pursuing looking at hearing assist, as she did get a amplifier from [employer] but it is not finding this is helpful as she had hoped Results - Lab Results Lab results reviewed: Yes Impression and Recommendations - Palliative Care Impression: This is a 70-year-old woman who has been diagnosed with systemic light chain amyloidosis with renal cardiac involvement, he will be starting treatment next week. She remains somewhat ambivalent regarding her goals, unfortunately in the meantime she has had a ground-level fall with some trauma to her tailbone. She continues with moderate to high symptom burden. Palliative care continue to provide support for symptom management, defining goals of care and coordination. Recommendations/Counseling Done: 1. Hypotension. Patient is on Bumex 2 mg twice daily, unfortunately I think everyone thought she was on 1 mg. But on examination of her prescriptions from Dr. Turner, she will decrease to 1 time daily. He had added metolazone if needed, but at this point she is hypotensive, continues to lose weight, and is feeling symptomatic. Change the instructions on the bottle as well as reviewed with both patient and . 2. Lower extremity edema. This remains persistent, patient does have low proteins and does sit with her legs dependent. She does not show any signs of fluid overload in fact the opposite, she does find stockings too difficult to manage, will continue to monitor. 3. Dysphagia. Patient does have some difficulty intermittently, she is working with speech therapy. She has tried to modify diet, she continues with weight loss. She is taking her pills with pudding which is helping. Patient will be starting dexamethasone, hopefully this will help with her appetite. 4. Oral candidiasis. Patient did several days of nystatin with some improvement, but found sweetness more difficult particularly around eating and pills. We will go ahead and order Diflucan 100 mg x 1 then repeat in 3 days, as patient still has white plaques, complaining of dryness, and will be starting steroids. 5. Generalized weakness. Patient continues have a decline in function, this is multifactorial, she does have physical therapy, but unfortunately remains quite weak. She does have a walker for safety. Encouraged them to work with physical therapy for car transfers, showed them a handle for getting in and out to make car transfers easier on [employer]. 6. Depression. Patient does have history of major depressive disorder per her , we did discuss options, we will go ahead and increase her Prozac from 10 mg to 20 mg, discussed we would not be able to see changes for 2 to 3 weeks. Patient appropriately feeling concerned regarding her future, and feelings of grief and loss as her functional status has changed as well as looking for at facing treatment. 7. Advanced care planning. Patient's treatment is palliative in nature, patient and do understand the seriousness of her illness. They are focused on quality of life, is deferring to patient to make the decision which is quite difficult for her right now.Did not bring up POLST at this visit, will explore as goals become more defined. 45 minutes with greater than 50% of this done in counseling regarding symptom management, adjustment of diuretics, pending treatment plan, coordination of care, and anticipatory guidance
== END 2021-04-15 15:16 | disposition home or self-care (01) ==
LOC: PC 15:15
PROVIDERS: ATTEND Nurse Practitioner Adult Health
DX: Z51.5 Encounter for palliative care (principal); G62.9 Polyneuropathy, unspecified; I95.9 Hypotension, unspecified; R60.0 Localized edema; R13.10 Dysphagia, unspecified; B37.0 Candidal stomatitis; R53.1 Weakness; F32.A Depression, unspecified
CPT/HCPCS: 99349

== ENCOUNTER 2021-04-20 10:36 | Outpatient (CLI) | payer MEDICARE, OTHER | END 2021-04-20 10:37 | disposition E | LOC: EMS 10:36 ==